=== PATIENT | male | born 2000 | race Caucasian/White ===

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

== ENCOUNTER → 2022-03-11 | Outpatient (CLI) | payer OTHER, SELFPAY ==
[2022-03-11 13:01] LABS: AST(SGOT) 167 U/L (15-37); Alanine Aminotransfer ALT/SGPT 518 U/L (16-61); Alkaline Phosphatase 194 U/L (45-117); Bilirubin, Direct 0.45 mg/dL (0.00-0.30); Globulin 3.2 g/dL (2.2-4.2); Protein, Total 7.2 g/dL (6.4-8.2)
[2022-03-11 13:19] LABS: Internal QC Validated? YES +Cl - CLEAR BKGD; Monotest Negative (Negative)
== END | disposition home or self-care (01) ==
LOC: LAB 11:48
PROVIDERS: PCP Pediatrics; Visit Provider Pediatrics
DX: J02.9 Acute pharyngitis, unspecified (principal)
CPT/HCPCS: 36415; 80076; 86308

== ENCOUNTER → 2022-03-31 | Outpatient (CLI) | payer OTHER, SELFPAY ==
[2022-03-31 17:37] LABS: AST(SGOT) 35 U/L (15-37); Alanine Aminotransfer ALT/SGPT 73 U/L (16-61); Albumin, Serum 4.3 g/dL (3.2-5.0); Alkaline Phosphatase 94 U/L (45-117); Bilirubin, Direct 0.18 mg/dL (0.00-0.30); Globulin 2.9 g/dL (2.2-4.2); Protein, Total 7.2 g/dL (6.4-8.2)
== END | disposition home or self-care (01) ==
LOC: LAB 16:31
PROVIDERS: PCP Pediatrics; Referring Provider Pediatrics; Visit Provider Pediatrics
DX: R74.01 Elevation of levels of liver transaminase levels (principal)
CPT/HCPCS: 36415; 80076

== ENCOUNTER → 2024-06-21 | Outpatient (CLI) | payer OTHER, SELFPAY ==
[2024-06-21 10:26] LABS: Erythrocyte Sedimentation Rate < 1 mm/hr (0-20)
[2024-06-21 10:29] LABS: Absolute Lymphocyte Count 1.49 X10^3/uL (0.83-4.51); Absolute Neutrophil Count 3.5 X10^3/uL (2.0-7.7); Basophil# 0.03 X10^3/uL; Basophil% 0.5 % (0-1); Eosinophil# 0.08 X10^3/uL; Eosinophils% 1.5 % (0-5); Hematocrit 50.9 % (40-54); Hemoglobin 17.1 g/dL (13.0-16.5); Lymphocyte # 1.49 X10^3/ul (0.83-4.51); Lymphocyte % 27.1 % (19-41); Mean Corp Hgb Conc 33.6 g/dL (32-36); Mean Corpuscular Hgb 30.5 pg (27.0-32.0); Mean Corpuscular Volume 90.9 fL (80-94); Mean Platelet Vol. 9.6 fl (6.2-12.0); Monocyte% 7.3 % (0-10); NRBC Flagged by Analyzer 0 % (0-5); Neutrophil # 3.47 X10^3/uL (2.7-7.7); Neutrophil % 63.2 % (47-70); Platelet Count 251 K/mm3 (150-450); RBC Distribution Width CV 11.8 % (11.6-14.6); RBC Distribution Width SD 39.4 fl (35.1-43.9); White Blood Count 5.5 K/mm3 (4.4-11.0)
[2024-06-21 10:54] LABS: Vitamin D,25 Hydroxy 39.4 ng/mL
[2024-06-21 11:22] LABS: ALB/GLOB Ratio 1.5 RATIO (0.9-2.4); AST(SGOT) 23 U/L (15-37); Alanine Aminotransfer ALT/SGPT 24 U/L (16-61); Albumin, Serum 4.3 g/dL (3.2-5.0); Alkaline Phosphatase 95 U/L (45-117); Anion Gap 5 (5-15); BUN 16 mg/dL (7-18); BUN/Creat Ratio 12.2 RATIO (10-20); Calcium,Total 9.5 mg/dL (8.5-10.1); Chloride 103 mmol/L (98-107); Cholesterol 179 mg/dL (200); Creatinine, Serum 1.31 mg/dL (0.70-1.30); EST Glomerular Filtration Rate 72 mL/min (>60); Est Glom Filt Rate - Afr Amer 87 mL/min (>60); Globulin 2.9 g/dL (2.2-4.2); Glucose 78 mg/dL (74-106); High Density Lipoprotein 68 mg/dL; Magnesium 2.6 mg/dL (1.6-2.6); Potassium 4.1 mmol/L (3.5-5.1); Protein, Total 7.2 g/dL (6.4-8.2); Sodium Level 138 mmol/L (136-145); Thyroid Stim Hormone (TSH) 0.894 uIU/mL (0.358-3.740); Triglycerides 99 mg/dL; Very Low Density Lipoprotein 20 mg/dL (5-40)
== END | disposition home or self-care (01) ==
LOC: LAB 09:31
PROVIDERS: PCP Internal Medicine; Referring Provider Internal Medicine; Visit Provider Internal Medicine
DX: Z00.00 Encounter for general adult medical examination without abnormal findings (principal); R42 Dizziness and giddiness; R11.0 Nausea; E55.9 Vitamin D deficiency, unspecified; L98.9 Disorder of the skin and subcutaneous tissue, unspecified
CPT/HCPCS: 36415; 80053; 80061; 82306; 83735; 84443; 85025; 85652

== ENCOUNTER 2024-06-22 12:17 | Emergency (ER) | payer OTHER, SELFPAY ==
[2024-06-22 12:18] VITALS: BP 178/89; PULSE 72; RESP 16; TEMP 36.6; O2SAT 100; BMI 25.2
[2024-06-22 12:30] VITALS: BP 159/77; PULSE 72; RESP 14; O2SAT 100
--- NOTE | 2024-06-22 13:07 | EDS_ITS ---
HPI History of Present Illness Chief Complaint: Hypertension Informant: patient Onset/Context/Timing Onset: Days Context: Gradual Onset Timing: Intermittent Current Severity: Mild Maximum Severity: Mild Narrative Narrative: 23-year-old male there is no past medical history. Recently had elevated blood pressure readings at doctor's office. Had labs done were basically unremarkable. He has had some lightheaded and dizziness recently. He is currently on no medications. He was sent in today because his blood pressure was elevated. He denies any severe headaches or chest pain. No shortness of breath. Prior similar symptoms: No Recent Illness/Hospitalization: No PFSH PFS Medical History Encounter for wellness examination in adult Nausea Lightheadedness Allergic conjunctivitis Allergic rhinitis Home Medications ?Medication ?Instructions ?Recorded ?Last Taken ?Type epinephrine 0.3 mg/0.3 mL 0.3 mg IM Q5-15M PRN 01/05/23 Unknown History injection, auto-injector Allergy/AdvReac Type Severity Reaction Status Date / Time peanut Allergy Anaphylaxis Verified 06/22/24 12:18 Family History Grandmother Arthritis Hypertension Pulmonary embolism 75 Grandfather Cancer MATERNAL-PANCRATIC , 76 PATERNAL-BLADDER, 75 Mother Thyroid disorder THYROID CANCER Surgical History History of appendectomy Social History adopted: No household members: other details: parents housing: house number of children: 0 current occupational status: unemployed current occupational exposures/hazards: No pets and animals: No leisure activities: sports and exercise history of recent travel: No sexually active: No Smoking Status: Never smoker alcohol intake: never substance use type: does not use well-balanced diet: daily or most days caffeine: No eating out: 1-3 times/week during the past year weight has: remained stable what type of physical activity do you participate in: running and weight training troy/catholic: Restorationist seatbelt use: always do you feel safe at home: Yes ROS ROS ED ROS Narrative Denies recent illness. Constitutional Constitutional ED: Denies chills or fever(s) Eyes Eyes: Denies blurry vision ENT ENT ED: Denies ear pain Cardiovascular Cardiovascular: Denies chest pain Respiratory/Chest Respiratory/Chest: Denies cough or dyspnea Gastrointestinal Gastrointestinal: Denies abdominal pain, constipation, diarrhea, melena, nausea or vomiting Genitourinary Genitourinary ED: Denies dysuria or hematuria Musculoskeletal Musculoskeletal: Denies arthralgias Integumentary Denies abscess Psychiatric Psychiatric: Denies depression Endocrine Endocrinology: Denies cold intolerance Hematologic/Lymphatic Hematologic/Lymphatic: Reports none Allergic/Immunologic Allergic/Immunologic ED: Denies mouth swelling, tongue swelling or urticaria EXAM Physical Exam Narrative Exam Narrative: 20-year-old male no acute distress vital signs stable initial blood pressure 178/80 9 repeat 159/77. H EENT exam normal. Pupils are reactive light. Extra motions are intact. No droop. No trauma. Neck nontender. Lungs clear. Heart regular rhythm no murmur. Abdomen soft nontender. Moving all 4 extremities. 5 out of 5 button reclaimer strength. Dorsi plantarflexion intact. Nontender. No edema. Back unremarkable. Neurologic exam normal. NIH 0. Bilateral button reclaimer. Bilateral dorsi plantarflexion. Bilateral [id number]. Bilateral fingertip to nose all within normal limits. He got up out of bed ambulating without any difficulty. Negative Romberg. Const Vital Signs: 06/22/24 12:18 06/22/24 12:29 06/22/24 12:30 Temperature 97.9 F Temperature Source Temporal Pulse Rate 72 72 Respiratory Rate 16 14 Respiratory Effort Normal Non-Labored Respiratory Pattern Normal Blood Pressure 178/89 H 159/77 H Blood Pressure Mean 118 104 Pulse Ox 100 100 Oxygen Delivery Method Room Air Room Air Positive well nourished and well developed; Negative for obese, cachectic, contractures or unkempt General Appearance ED: well developed and NAD; Negative for unkempt, cachectic, contractures, cyanotic, diaphoretic or pallor Nutritional Appearance: Negative for cachectic or obese HEENT Reports moist mucous membranes; Denies dry mucous membranes Negative for trauma or tenderness Mouth ED: No dry mucous membranes Mouth: No dry mucous membranes Eyes PERRL and EOMs intact bilaterally General Eye ED: Negative for pale conjunctiva or scleral icterus Neck no lymphadenopathy, supple and no JVD General: Negative for tenderness Lymph Lymphatic: Negative for other Chest Wall inspection of chest normal and palpation of chest normal Chest: Negative for other Resp normal respiratory effort and clear to auscultation bilaterally Effort and Inspection: Negative for retractions Auscultation: Negative for rales, rhonchi, wheezes or diminished lung sounds Cardio regular rate, regular rhythm, S1 normal heart sound, S2 normal heart sound and no murmurs Palpation: Negative for palpable S3 or palpable S4 Rate: Negative for bradycardia or tachycardic Rhythm: Negative for abnormal rhythm GI normal to inspection, nondistended, normoactive bowel sounds, non-tender, non- distended and no masses Inspection: Negative for abdominal distention Palpation: soft; Negative for tender, guarding or rebound tenderness present Back/Spine no CVA tenderness General Back: Negative for CVA tenderness Cervical Spine: Negative for cervical spine tenderness Thoracic Spine / Upper Back: Negative for thoracic spinal tenderness or paraspinal muscle tenderness Lumbar Spine / Lower Back: Negative for lumbar spinal tenderness Extremity normal to inspection General Extremety ED: Negative for edema or tenderness General Extremity: Negative for edema Neuro oriented x3, CN's II-XII intact bilaterally and no sensory deficits noted Sensorium / Orientation: alert; Negative for orientation impaired, lethargic or stuporous Sensory Exam: No sensory level loss detected Motor Exam: strength 5/5 throughout; Negative for general weakness or strength abnormal Psych mental status grossly normal Appearance: Negative for unkempt Attitude: No agitated Mood & Affect: Negative for depressed or tearful Skin no rashes or lesions noted, no wounds and skin turgor normal General Skin Exam: elasticity normal; Negative for jaundice or pallor Lesions: No lesion noted Rashes: No rashes noted Trauma: Negative for abrasion Wounds: Negative for wounds noted MDM MDM MDM Narrative Medical decision making narrative: Healthy 23-year-old male with elevated blood pressure. Had a completely normal exam. He had labs done yesterday. They were basically unremarkable. I discussed with both he and both parents are present in the room. His dad works here at the pharmacy. I told him I thought it would be aggressive at this time to start him on blood pressure medications with a completely normal exam and him being 23 and healthy. We can log his blood pressure over the next week and see where those are and then he and his physician can make the more informed decision. They are comfortable with that plan. He will be discharged home to follow-up with Dr. Soledad Foote. Discharge Plan Triage Chief Complaint: Hypertension ED Provider: Ben Lopez Dx/Rx/DC Orders Clinical Impression: Elevated blood pressure reading Instructions: ED Hypertension, To Be Confirmed Prescriptions: No Action epinephrine 0.3 mg/0.3 mL auto-injector 0.3 mg IM Q5-15M PRN Rx Instructions: do not exceed 3 doses per episode Primary Care Provider: Soledad Foote Referrals: Soledad Foote MD [Primary Care Provider] - 1 Week Activity Restrictions/Additional Instructions: Do normal daily activities. I would continue to exercise. Things to help with your blood pressure would be obviously exercise, walking, reading, meditation. Log your blood pressures twice daily. Take these blood pressure readings to Dr. Foote next week and he and you can make an informed decision if you need to start blood pressure medications. Your creatinine was only 1.31. The upper limits of normal in the lab is 1.3 that is basically normal. Print Language: Guyanese Disposition Disposition: Home, Self Care
== END 2024-06-22 13:14 | disposition home or self-care (01) ==
LOC: ED 13:09
PROVIDERS: Emergency Provider Emergency Medicine; PCP Internal Medicine; Visit Provider Emergency Medicine
DX: I10 Essential (primary) hypertension (principal)
CPT/HCPCS: 99282

== ENCOUNTER → 2024-07-05 | Outpatient (CLI) | payer OTHER, SELFPAY ==
[2024-07-05 11:40] LABS: Anion Gap 4 (5-15); BUN 19 mg/dL (7-18); BUN/Creat Ratio 12.6 RATIO (10-20); Calcium,Total 9.6 mg/dL (8.5-10.1); Chloride 107 mmol/L (98-107); Creatinine, Serum 1.51 mg/dL (0.70-1.30); EST Glomerular Filtration Rate 61 mL/min (>60); Est Glom Filt Rate - Afr Amer 74 mL/min (>60); Glucose 62 mg/dL (74-106); Potassium 4.3 mmol/L (3.5-5.1); Sodium Level 141 mmol/L (136-145)
[2024-07-18 11:10] LABS: ALDOSTERONE/RENIN RATIO 2.3 (0.0-30.0); Aldosterone, Serum 3.9 ng/dL (0.0-30.0); Dopamine, Pl 54 pg/mL (0-48); Epinephrine, Pl 47 pg/mL (0-62); Norepinephrine, Pl 535 pg/mL (0-874)
== END | disposition home or self-care (01) ==
LOC: LAB 10:29
PROVIDERS: PCP Internal Medicine; Referring Provider Internal Medicine; Visit Provider Internal Medicine
DX: R03.0 Elevated blood-pressure reading, without diagnosis of hypertension (principal)
CPT/HCPCS: 36415; 80048; 82088; 82384; 82533; 84244

== ENCOUNTER → 2024-09-20 | Outpatient (CLI) | payer OTHER, SELFPAY ==
--- NOTE | 2024-09-20 17:17 | US_ITS ---
INDICATION: ELEVATED SERUM CREATININE EXAMINATION: Ultrasound US Kidney(s) complete (eg, kidneys and bladder) TECHNIQUE: Brewster scale and color doppler images were obtained of the kidneys. COMPARISON: No relevant prior comparison study available FINDINGS: RIGHT KIDNEY: 11 x 6 x 6.6 cm. The renal cortex measures 2.2 cm. There is no hydronephrosis. No shadowing calculus, focal lesion or perinephric collection is demonstrated. Ureteral jet to the bladder was visualized. LEFT KIDNEY: 11 x 4.3 x 6.4 cm. The left kidney is poorly visualized due to overlying bowel gas. The renal cortex measures 2 cm. There is no hydronephrosis. No shadowing calculus, focal lesion or perinephric collection is definitely demonstrated. Ureteral jet to the bladder wasn''t visualized. URINARY BLADDER: The calculated prevoid bladder volume is 527 cc. US/Kidney and Bladder IMPRESSION: Essentially unremarkable renal ultrasound. Electronically Signed: Carl Taylor MD at 9:15 EST ,
== END | disposition home or self-care (01) ==
LOC: US 17:09
PROVIDERS: PCP Internal Medicine; Referring Provider Internal Medicine Nephrology; Visit Provider Internal Medicine Nephrology
DX: R79.89 Other specified abnormal findings of blood chemistry (principal)
CPT/HCPCS: 76770

== ENCOUNTER → 2024-09-26 | Outpatient (CLI) | payer OTHER, SELFPAY ==
[2024-09-26 11:13] LABS: Anion Gap 6 (5-15); BUN 16 mg/dL (7-18); BUN/Creat Ratio 11.8 RATIO (10-20); Calcium,Total 9.2 mg/dL (8.5-10.1); Chloride 108 mmol/L (98-107); Creatinine, Serum 1.36 mg/dL (0.70-1.30); EST Glomerular Filtration Rate 69 mL/min (>60); Est Glom Filt Rate - Afr Amer 83 mL/min (>60); Glucose 66 mg/dL (74-106); Potassium 3.8 mmol/L (3.5-5.1); Sodium Level 142 mmol/L (136-145)
[2024-09-28 12:08] LABS: Anti-dsDNA Ab <1 IU/mL (0-9)
[2024-10-01 08:07] LABS: Anti-Glomerular Basement Memb < 0.2 units (0.0-0.9); Complement C3 106 mg/dL (82-167); Cytoplasmic Ab (C-ANCA) <1:20 titer (Neg:<1:20); Perinuclear Ab (P-ANCA) <1:20 titer (Neg:<1:20)
== END | disposition home or self-care (01) ==
PROVIDERS: PCP Internal Medicine; Referring Provider Internal Medicine Nephrology; Visit Provider Internal Medicine Nephrology
DX: R79.89 Other specified abnormal findings of blood chemistry (principal)
CPT/HCPCS: 36415; 80048; 83520; 86037; 86160; 86225

== ENCOUNTER → 2025-08-21 | Outpatient (CLI) | payer OTHER, SELFPAY ==
--- OUTSIDE RECORDS SUMMARY | 2025-08-21 07:10 | XMS RPT_ITS | CCD ---
Author Organization [facility] Care Team Providers Care Election Watcher Name Role Phone Marii Gross LPN Unavailable Unavailab Marii Alberto LPN Unavailable Unavailab Roxanne Berumen MD Primary Care Provider Dr. Roxanne Kellogg Primary Care Provider [phone] Dr. Roxanne Kellogg Referring Provider [phone] BOGDAN Sheridan Attending Provider Roxanne Kellogg MD Primary Care Provider DELIA FARRIS Attending Unavailable ROXANNE KELLOGG Primary Care Unavailable ROXANNE KELLOGG Attending Unavailable ROXANNE KELLOGG Primary Care Unavailable ROXANNE KELLOGG Attending Unavailable BESS, ROXANNE Gomez Primary Care Unavailable ROXANNE KELLOGG Primary Care Unavailable DELIA FARRIS Attending Unavailable Dr. Soledad Foote MD Primary Care Provider Dr. Soledad Foote MD Attending Provider Soledad Foote Primary Care Unavailable Ben Lopez Attending Unavailable Marie, Jayaprakas Attending Unavailable Marie, Jayaprakas Referring Unavailable Soledad Foote Primary Care Unavailable Soledad Foote Attending Unavailable Soledad Foote Primary Care Unavailable Roxanne Kellogg Primary Care Unavailable Soledad Foote Attending Unavailable Soledad Foote Primary Care Unavailable Soledad Foote Attending Unavailable Soledad Foote Primary Care Unavailable Soledad Foote Attending Unavailable Soledad Foote Referring Unavailable Soledad Foote Primary Care Unavailable Soledad Foote Attending Unavailable Soledad Foote Referring Unavailable Soledad Foote Primary Care Unavailable Marie, Jayaprakas Attending Unavailable Marie, Jayaprakas Referring Unavailable Allergies Allergy Classification Reported Allergen(s) Allergy Type Date of Onset Reaction(s) Facility (9 sources) peanut; Translations: [PEANUTS] drug allergy 08-07-2005 [facility] Work Phone: (1 source) peanut allergenic extract Drug Allergy 06-19-2025 Anaphylaxis [facility] (1 source) peanut allergenic extract Drug Allergy 06-19-2025 [facility] Repository Medications Current Medications Medication Drug Class(es) Dates Sig (Normalized) Sig (Original) amoxicillin 875 mg / clavulanate 125 mg oral tablet (4 sources) Penicillin-class Antibacterial Start: 05-20-2022 End: 05-27-2022 take 1 tablet by mouth twice daily amoxicillin-clavu lanic acid (AUGMENTIN) 875-125 mg per tablet Indications: Acute suppurative otitis media of left ear without spontaneous rupture of tympanic membrane, recurrence not specified Take 1 tablet by mouth twice daily for 7 days. 14 tablet 0 05/20/2022 05/27/2022 Active Start: 03-09-2022 End: 03-19-2022 take 1 tablet by mouth every twelve hours Amoxicillin-Pot Clavulanate Discontinued 1 TABLET PO Q12H 20 March 09, 2022 7:41am March 19, 2022 12:05am Start: 03-09-2022 End: 03-19-2022 Amoxicillin-Pot Clavulanate 875-125 mg tablet Discontinued 1 {tbl} PO Q12H 20 10 March 09, 2022 12:00am March 18, 2022 12:00am March 19, 2022 12:05am Acute sinusitis, unspecified Comment on above: Take 1 tablet by cecy twice daily for 7 days. azithromycin 250 mg oral tablet (1 source) Macrolide Antimicrobial Start: 06-19-20 Azithromycin (Zithromax) 250 mg tablet Active 0 PO .COMPLEX 6 June 19, 2025 12:00am For 250 mg dose pack: take 500 mg today (day 1), then 250 mg for 4 days (days 2-5) PO ciprofloxacin 3 mg/ml ophthalmic solution (1 source) Quinolone Antimicrobial Start: 05-13-20 End: 05-18-20 take 1 drop(s) into the eye(s) four times daily ciprofloxacin HCl (CILOXAN) 0.3 % ophthalmic solution Use 1 Drop in both eyes four times daily for 5 days. 10 mL 0 05/13/2022 05/18/2022 Active Comment on above: Use 1 Drop in both e yes four times daily for 5 days. [id number] 0.3 ml EPINEPHrine 1 mg/ml auto-injector (15 sources) alpha-Adrenergic Agonist, beta-Adrenergic Agonist, Catecholamine Start: 01-06-20 End: 01-22-20 25 Epinephrine 0.3 mg/0.3 mL auto-injector Active 0.3 mg IM every 5 to 15 minutes as needed for anaphylaxis 2 January 21, 2025 8:05am do not exceed 3 doses per episode Start: 06-02-2019 End: 10-07-2022 EPINEPHrine (EPIPEN) 0.3 mg/ 0.3 mL auto-injector Indications: Allergy to peanuts Inject to the anterior thigh as directed by the allergy action plan. If used must seek emergent medical care. May repeat a second dose in 5 minutes awaiting emergency care. Dispense 2 twin packs with trainers. 2 Each 1 03/03/2021 10/07/2022 Discontinued Comment on above: Inject to the anteri or thigh as directed by the allergy action plan. If used must seek emergent medical care. May repeat a second dose in 5 minutes awaiting emergency care. Dispense 2 twin packs with trainers. Completed/Discontinued Medications Medication Drug Class(es) Dates Sig (Normalized) Sig (Original) amoxicillin 500 mg oral capsule (2 sources) Penicillin-class Antibacterial Start: 2 End: 2 take 2 capsules by mouth twice daily amoxicillin (POLYMOX, AMOXIL) 500 mg capsule Take 2 capsules by mouth twice daily for 7 days. 28 capsule 0 05/13/2022 05/20/2022 Discontinued (Course of therapy completed) Comment on above: Take 2 capsules by m outh twice daily for 7 days. methylPREDNISolone 4 mg oral tablet (1 source) Corticosteroid Start: 2 End: 3 take 1 tablet by mouth once Methylprednisolone (Medrol (Myles)) 4 mg tablets,dose pack Discontinued 0 PO per package directions 21 May 12, 2022 12:00am December 17, 2022 3:12pm PO PER PKG DIR prednisoLONE 3 mg/ml oral solution (3 sources) Corticosteroid Start: 2 End: 2 take 15 mL by mouth once daily prednisoLONE sodium phosphate (ORAPRED) 15 mg/5 mL (3 mg/mL) oral liquid Indications: Exudative pharyngitis Take 15 mL by mouth once daily for 5 days. 75 mL 0 03/11/2022 03/16/2022 Comment on above: Take 15 mL by mouth once daily for 5 days. Problems Active Problems Problem Classification Problem Date Documented Da te Episodic/Chronic Allergic reactions (8 sources) Allergy to peanut; Translations: [Allergy to peanuts] Onset: 09-16-2014 09-16-2014 Episodic Essential hypertension (1 source) Essential (primary) hypertension; Translations: [Essential (primary) hypertension] Onset: 07-17-2024 Chronic Inflammation; infection of eye (except that caused by tuberculosis or sexually transmitteddisease) (2 sources) Acute infectious conjunctivitis; Translations: [Unspecified acute conjunctivitis, bilateral] Episodic Other circulatory disease (2 sources) Elevated blood pressure; Translations: [Elevated blood-pressure reading, without diagnosis of hypertension] 06-30-2024 Episodic Other circulatory disease (1 source) Elevated blood-pressure reading, without diagnosis of hypertension; Translations: [Elevated blood-pressure reading, without diagnosis of hypertension] Onset: 06-19-2025 Episodic Other ear and sense organ disorders (1 source) Impacted cerumen of bilateral ears; Translations: [Impacted cerumen, bilateral] Episodic Other ear and sense organ disorders (3 sources) Impacted cerumen; Translations: [Impacted cerumen, right ear] 06-19-2025 Episodic Other ear and sense organ disorders (1 source) Impacted cerumen, left ear; Translations: [Impacted cerumen, left ear] Onset: 06-19-2025 Episodic Other ear and sense organ disorders (1 source) Impacted cerumen, right ear; Translations: [Impacted cerumen, right ear] Onset: 06-19-2025 Episodic Other screening for suspected conditions (not mental disorders or infectious disease) (2 sources) Serum creatinine raised; Translations: [Other specified abnormal findings of blood chemistry] Onset: 06-19-2025 07-05-2024 Episodic Other skin disorders (1 source) Skin lesion; Translations: [Disorder of the skin and subcutaneous tissue, unspecified] 07-22-2023 Episodic Other skin disorders (1 source) Disorder of skin of upper limb; Translations: [Disorder of the skin and subcutaneous tissue, unspecified] 07-22-2023 Episodic Other upper respiratory disease (1 source) Allergic rhinitis; Translations: [Allergic rhinitis, unspecified] 05-12-2022 Chronic Other upper respiratory infections (3 sources) Sinusitis; Translations: [Chronic sinusitis, unspecified] Onset: 06-19-2025 06-19-2025 Chronic Other upper respiratory infections (10 sources) Exudative pharyngitis; Translations: [Acute pharyngitis, unspecified] Onset: 03-11-2022 Episodic Otitis media and related conditions (1 source) Acute suppurative otitis media without spontaneous rupture of ear drum; Translations: [Acute suppurative otitis media without spontaneous rupture of ear drum, left ear] Episodic Past or Other Problems Problem Classification Problem Date Documented Da te Episodic/Chronic Conditions associated with dizziness or vertigo (2 sources) Lightheadedness; Translations: [Dizziness and giddiness] Onset: 06-22-2024 06-21-2024 Episodic Nausea and vomiting (2 sources) Nausea; Translations: [Nausea] Onset: 06-22-2024 06-21-2024 Episodic Other diseases of veins and lymphatics (6 sources) Varicocele; Translations: [Scrotal varices] Onset: 09-02-2016 09-02-2016 Episodic Other male genital disorders (6 sources) Spermatocele; Translations: [Spermatocele of epididymis, unspecified] Onset: 09-21-2015 09-21-2015 Episodic Other non-traumatic joint disorders (2 sources) Ankle pain; Translations: [Pain in right ankle and joints of right foot] Onset: 07-17-2017 07-17-2017 Episodic Other skin disorders (1 source) Disorder of the skin and subcutaneous tissue, unspecified; Translations: [Disorder of the skin and subcutaneous tissue, unspecified] Onset: 06-22-2024 Episodic Sprains and strains (2 sources) Strain of unspecified muscle and tendon at ankle and foot level, right foot, initial encounter; Translations: [Strain of unspecified muscle and tendon at ankle and foot level, right foot, initial encounter] Onset: 07-17-2017 07-17-2017 Episodic Results Test Name Value Interpretation Reference Range Facility MR/BMSJhoanaIMBon 06-19-2025 MR/BMS.IMB [facility] [address] [place] [address] OFFICE VISIT Date of Service: 06/19/25 MR#: [id number] Acct: [id number] Name: FAIZAN PASTOR Rep #: [id number] : 2000 Provider: Dr. Soledad kwan MD Age/Sex: 24/M Location: [facility] Status: Signed with Addenda ADDENDUM by Gilles Arnold RN on 06/19/25 at 1135 Office Procedure Documentation entered by Gilles Arnold RN 06/19/25 11:35: Cerumen Removal Procedure BMS Cerumen Removal Procedure Procedure performed by: Gilles Arnold Method of removal: irrigation From which ear canal was the cerumen removed: bilateral Amount of Cerumen: moderate Patient tolerated procedure: well Complications: none Date cc: * Signed Intake Vital Signs 07/05/24 09:24 06/19/25 09:31 Height 5 ft 11 in 5 ft 11 in Weight: 182 lb 2 oz 180 lb 8 oz BMI 25.4 25.2 BP 162/77 H 181/72 H Blood Pressure Location Lt brachial Rt brachial Position Sitting Sitting Respiration 16 16 Pulse 62 70 Pulse Source Monitor Monitor Temp 98.6 F 98.9 F Temp Source Temporal Temporal Pulse Oximetry (%) 98 98 Oxygen Delivery Method room air room air Intake Visit Reasons: Cough, Congestion Chief Complaint: Cough, congestion Perinatology Physician Required: No Accompanied by: Self Is patient in pain?: Yes (Sinus pressure) Pain scale (1-10): 1 Allergies peanut Allergy (Verified 06/19/25 09:26) Anaphylaxis Medications ???Medication ???Instructions ???Recorded ???Confirmed ???Type epinephrine 0.3 mg/0.3 mL 0.3 mg (0.3 mL) IM Q5-15M PRN 03/2 4/25 08/20/25 Rx injection, auto-injector anaphylaxis #2 ea azithromycin 250 mg tablet See Rx Instructions PO .COMPLEX #6 06/19/25 06/19/25 Rx (Zithromax) tabs [facility] Medical History (Updated 06/19/25 @ 10:[address] Soledad Foote MD) Sinus infection Impacted cerumen, right ear Impacted cerumen of left ear Elevated serum creatinine Encounter for wellness examination in adult Nausea Lightheadedness Allergic conjunctivitis Allergic rhinitis Surgical History History of appendectomy Family History Grandmother Arthritis Hypertension Pulmonary embolism 75 Grandfather Cancer MATERNAL-PANCRATIC , 76 PATERNAL-BLADDER, 75 Mother Thyroid disorder THYROID CANCER Social History adopted: No household members: other details: parents housing: house number of children: 0 current occupational status: unemployed current occupational exposures/hazards: No pets and animals: No leisure activities: sports and exercise history of recent travel: No sexually active: No Smoking Status: Never smoker alcohol intake: never substance use type: does not use well-balanced diet: daily or most days caffeine: No eating out: 1-3 times/week during the past year weight has: remained stable what type of physical activity do you participate in: running and weight training troy/orthodox: Uatsdin seatbelt use: always do you feel safe at home: Yes HPI HPI Chief Complaint: Cough, congestion Details: FAIZAN PASTOR, is a 24 M who presents to the office today for Annnual wellness visit, but also has 1 week of upper respiratory symptoms to include head congestions, yellow green sinus drainage, "clogged ears." No coughing. Has unfortunately been using pseudophed. He too some this morning. He has a history of elevated BP, which we evaluated extensively last year. Had mildly elevated creatinine, and because of that, and elevated BP, was referred to nephrology. We did lab workup including hormones, aldosterone, renin levels, as well as metanephrines. All of this was generally speaking unremarkable. Nephrology did not have any specific concerns per se. His blood pressures did come back down and he monitored for a while but over the last approximately a year, he has not been regularly monitoring. Has a blood pressure cuff at home. 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 He is working out at the gym a couple of days a week. He is not experiencing any episode chest pain, chest tightness, shortness of breath wheeze cough or congestion. No fever or chills. No nausea or vomiting. Appetite has been good. Bowel movements have been regular. Continues to carry EpiPen due to history of peanut allergy. Review of systems per chart. Physical exam. Vital signs on chart. PERRLA. Sclera are clear. Right TM occluded by cerumen. Left mild ceruminosis. Perhaps a little fluid behind the left eardrum but the eardrum is not erythematous. Canal is unremarkable. Posterior pharynx is unremarkable. (more content not included)... Normal [facility] ANCAon 10-01-2024 Atypical pANCA <1:20 Normal Neg:<1:20 [facility] Comment on above: Result Comment: The atypical pANCA pattern has been observed in a significant percentage of patients with ulcerative colitis, primary sclerosing cholangitis and autoimmune hepatitis. Performed By: #### L 3300.1200, L3400.4200, L500.2500, L801.1543, L801.1541, L3100.5800, L801.1545, L3100.5700, L3100.5500 #### [facility] [address] [place], [place], [id number] Cytoplasmic Ab <1:20 Normal Neg:<1:20 [facility] Comment on above: Performed By: #### L 3300.1200, L3400.4200, L500.2500, L801.1543, L801.1541, L3100.5800, L801.1545, L3100.5700, L3100.5500 #### [facility] [address] [place], [place], [id number] Perinuclear Ab. <1:20 Normal Neg:<1:20 [facility] Comment on above: Result Comment: The presence of positive fluorescence exhibiting P-ANCA or C-ANCA patterns alone is not specific for the diagnosis of Carlos's Granulomatosis (WG) or microscopic polyangiitis. Decisions about treatment should not be based solely on ANCA IFA results. The International ANCA Group Consensus recommends follow up testing of positive sera with both CT- 3 and MPO-ANCA enzyme immunoassays. As many as 5% serum samples are positive only by EIA. Ref. AM J Clin Pathol 1999;111:507-513. Performed By: #### L 3300.1200, L3400.4200, L500.2500, L801.1543, L801.1541, L3100.5800, L801.1545, L3100.5700, L3100.5500 #### [facility] [address] [place], [address] Anti-Glomerular Basement Mem bon 10-01-2024 ANTI-GLOM BM Ab < 0.2 Normal 0.0-0.9 [facility] Comment on above: Result Comment: Perf ormed at: - [facility] [address] [id number] Harness Mender: Slava Giang PhD, Phone: [phone] Performed at: - [facility] [id number] Harness Mender: Gini Tong MD, Phone: [phone] Performed By: #### L 3300.1200, L3400.4200, L500.2500, L801.1543, L801.1541, L3100.5800, L801.1545, L3100.5700, L3100.5500 #### [facility] [address] [place], [address] Complement C3on 10-01-2024 COMP C3 106 mg/dL Normal 82-167 [facility] Comment on above: Performed By: #### L 3300.1200, L3400.4200, L500.2500, L801.1543, L801.1541, L3100.5800, L801.1545, L3100.5700, L3100.5500 #### [facility] [address] [place], [address] Complement C4on 10-01-2024 COMPLEMENT, C4 24 mg/dL Normal 12-38 [facility] Comment on above: Performed By: #### L 3300.1200, L3400.4200, L500.2500, L801.1543, L801.1541, L3100.5800, L801.1545, L3100.5700, L3100.5500 #### [facility] [address] [place], [address] Miscellaneous Lab Procedureo n 10-01-2024 [facility] [place] Normal [facility] Comment on above: Order Comment: [id number] PR3 SERUM [id number] PR3 SERUM RMT Result Comment: TEST RESULTS LIMITS Anti-PR3 Antibodies <0.2 units 0.0-0.9 TESTING PERFORMED AT [facility]. ORIGINAL REPORT ON FILE IN LAB CONTAINS ADDITIONAL TEST SITE INFORMATION. Performed By: #### L 3300.1200, L3400.4200, L500.2500, L801.1543, L801.1541, L3100.5800, L801.1545, L3100.5700, L3100.5500 ####[facility] [id number] [place], [address] Miscellaneous Lab Procedure 2on 10-01-2024 [facility] [place] 2 Normal [facility] Comment on above: Order Comment: [id number] 006 MPO PLASMA [id number] MPO PLASMA RF Result Comment: TEST RESULTS LIMITS Myeloperoxidase (MPO), 266 pmol/L 0-469 Low CVD Risk <470 Moderate Risk 470 - 539 High Risk >539 [facility]. ORIGINAL REPORT ON FILE IN LAB CONTAINS ADDITIONAL TEST SITE INFORMATION. Performed By: #### L 3300.1200, L3400.4200, L500.2500, L801.1543, L801.1541, L3100.5800, L801.1545, L3100.5700, L3100.5500 ####[facility] [address] [place], [address] Miscellaneous Lab Procedure 3on 10-01-2024 [facility] [place] 3 Normal [facility] Comment on above: Order Comment: [id number] CYSTATIN C SERUM [id number] CYSTATIN C SERUM RMT Result Comment: TEST RESULTS LIMITS Cystatin C 0.94 mg/L 0.60-1.00 TESTING PERFORMED AT [facility]. ORIGINAL REPORT ON FILE IN LAB CONTAINS ADDITIONAL TEST SITE INFORMATION. Performed By: #### L 3300.1200, L3400.4200, L500.2500, L801.1543, L801.1541, L3100.5800, L801.1545, L3100.5700, L3100.5500 ####[facility] [address] [place], [place], [id number] Anti-dsDNA Abon 09-28-2024 ANTI-DNA (DS)AB <1 Normal 0-9 [facility] Comment on above: Result Comment: Nega tive <5 Equivocal 5 - 9 Positive >9 Performed at: [address] [id number] Harness Mender: Slava Giang PhD, Phone: [phone] Performed By: #### L 3300.1200, L3400.4200, L500.2500, L801.1543, L801.1541, L3100.5800, L801.1545, L3100.5700, L3100.5500 #### [facility] [address] [place], [place], [id number] Basic Metabolic Profile (BMP )on 09-26-2024 BUN/CRE 11.8 RATIO Normal 10-20 [facility] Comment on above: Performed By: #### L 3300.1200, L3400.4200, L500.2500, L801.1543, L801.1541, L3100.5800, L801.1545, L3100.5700, L3100.5500 #### [facility] [address] [place], [place], [phone] CA,Total 9.2 mg/dL Normal 8.5-10.1 [facility] Comment on above: Performed By: #### L 3300.1200, L3400.4200, L500.2500, L801.1543, L801.1541, L3100.5800, L801.1545, L3100.5700, L3100.5500 #### [facility] [address] [place], [place], [phone] Chloride [Moles/Vol] 108 mmol/L High 98-107 [facility] Comment on above: Performed By: #### L 3300.1200, L3400.4200, L500.2500, L801.1543, L801.1541, L3100.5800, L801.1545, L3100.5700, L3100.5500 #### [facility] [address] [place], [place], [phone] (750) CO2 [Moles/Vol] 28.0 mmol/L Normal 21.0-32.0 [facility] Comment on above: Performed By: #### L 3300.1200, L3400.4200, L500.2500, L801.1543, L801.1541, L3100.5800, L801.1545, L3100.5700, L3100.5500 #### [facility] [address] [place], [place], [phone] (112) Creatinine [Mass/Vol] 1.36 mg/dL High 0.70-1.30 [facility] Comment on above: Result Comment: The validity of the calculated GFR GFRAA in patients over 70 years has not been determined. Clinical correlation is essential. Performed By: #### L 3300.1200, L3400.4200, L500.2500, L801.1543, L801.1541, L3100.5800, L801.1545, L3100.5700, L3100.5500 #### [facility] [address] [place], [place], [phone] (910) EST GFR - AA 83 mL/min Normal >60 [facility] Comment on above: Result Comment: Afri can Citizen [place] GFR Calc Performed By: #### L 3300.1200, L3400.4200, L500.2500, L801.1543, L801.1541, L3100.5800, L801.1545, L3100.5700, L3100.5500 #### [facility] [address] [place], [place], [phone] (699) GAP 6 Normal 5-15 [facility] Comment on above: Performed By: #### L 3300.1200, L3400.4200, L500.2500, L801.1543, L801.1541, L3100.5800, L801.1545, L3100.5700, L3100.5500 #### [facility] [address] [place], [address] GFR/1.73 sq M.predicted among non-blacks MDRD (S/P/Bld) [Vol rate/Area] 69 mL/min/{1.73_m2} Normal >60 [facility] Comment on above: Result Comment: Non- GFR Calc Performed By: #### L 3300.1200, L3400.4200, L500.2500, L801.1543, L801.1541, L3100.5800, L801.1545, L3100.5700, L3100.5500 #### [facility] [address] [place], [address] Glucose [Mass/Vol] 66 mg/dL Low 74-106 [facility] Comment on above: Performed By: #### L 3300.1200, L3400.4200, L500.2500, L801.1543, L801.1541, L3100.5800, L801.1545, L3100.5700, L3100.5500 #### [facility] [address] [place], [address] Potassium [Moles/Vol] 3.8 mmol/L Normal 3.5-5.1 [facility] Comment on above: Performed By: #### L 3300.1200, L3400.4200, L500.2500, L801.1543, L801.1541, L3100.5800, L801.1545, L3100.5700, L3100.5500 #### [facility] [address] [place], [address] Sodium [Moles/Vol] 142 mmol/L Normal 136-145 [facility] Comment on above: Performed By: #### L 3300.1200, L3400.4200, L500.2500, L801.1543, L801.1541, L3100.5800, L801.1545, L3100.5700, L3100.5500 #### [facility] [address] [place], [address] Urea nitrogen [Mass/Vol] 16 mg/dL Normal 7-18 [facility] Comment on above: Performed By: #### L 3300.1200, L3400.4200, L500.2500, L801.1543, L801.1541, L3100.5800, L801.1545, L3100.5700, L3100.5500 #### [facility] [address] [place], [address] Kidney and Bladderon 024 Kidney and Bladder [facility] Services [address] [place] [address] Kidney and Bladder MR#: [id number] Acct: [id number] Name: FAIZAN PASTOR Rep #: [id number] : 2000 M 23 From: Carl Quintero PCP: Dr. Soledad Foote MD Status: [facility] Study: Kidney and Bladder Date of Exam: 09/20/24 Exam# [id number] Ordering Dr: Pramod Salazar MD :[id number] INDICATION: ELEVATED SERUM CREATININE EXAMINATION: Ultrasound US Kidney(s) complete (eg, kidneys and bladder) TECHNIQUE: Brewster scale and color doppler images were obtained of the kidneys. COMPARISON: No relevant prior comparison study available FINDINGS: RIGHT KIDNEY: 11 x 6 x 6.6 cm. The renal cortex measures 2.2 cm. There is no hydronephrosis. No shadowing calculus, focal lesion or perinephric collection is demonstrated. Ureteral jet to the bladder was visualized. LEFT KIDNEY: 11 x 4.3 x 6.4 cm. The left kidney is poorly visualized due to overlying bowel gas. The renal cortex measures 2 cm. There is no hydronephrosis. No shadowing calculus, focal lesion or perinephric collection is definitely demonstrated. Ureteral jet to the bladder wasn''t visualized. URINARY BLADDER: The calculated prevoid bladder volume is 527 cc. US/Kidney and Bladder IMPRESSION: Essentially unremarkable renal ultrasound. Electronically Signed: Carl Taylor MD at 9:15 EST , CC: Dr. Pramod Salazar MD; Dr. Soledad Foote MD Scrap Hoist Operator: Signed Normal [facility] Catecholamines, Plasmaon DOPAMINE 54 pg/mL Abnormal 0-48 [facility] Comment on above: Order Comment: Test( s) 433859-Khlqjzaxgza; 613626-Tugxv Activity, Plasmawas developed and its performance characteristicsdetermined by [facility]. It has not been cleared or approvedby the Food and Drug Administration. Performed By: #### L 3300.1050, L500.2500, L509.6000, L3430.0100 ####[facility] [address] [place], [address] EPINEPHRINE 47 pg/mL Normal 0-62 [facility] Comment on above: Order Comment: Test( s) 184523-Xwoulmkoowf; 415987-Rgcra Activity, Plasmawas developed and its performance characteristicsdetermined by [facility]. It has not been cleared or approvedby the Food and Drug Administration. Performed By: #### L 3300.1050, L500.2500, L509.6000, L3430.0100 ####[facility] [address] [place], [address] NOREPINEPHRINE 535 pg/mL Normal 0-874 [facility] Comment on above: Order Comment: Test( s) 746194-Ksvstcugcxk; 704070-Eagui Activity, Plasmawas developed and its performance characteristicsdetermined by [facility]. It has not been cleared or approvedby the Food and Drug Administration. Performed By: #### L 3300.1050, L500.2500, L509.6000, L3430.0100 ####[facility] [address] [place], [address] Renin/Aldosterone Activityon 07-18-2024 ALD/RENIN RATIO 2.3 Normal 0.0-30.0 [facility] Comment on above: Order Comment: Test( s) 699230-Oiaziqdvvwv; 692678-Oiudj Activity, Plasmawas developed and its performance characteristicsdetermined by [facility]. It has not been cleared or approvedby the Food and Drug Administration. Result Comment: Unit s: ng/dL per ng/mL/hr Performed at: [address] [id number] Harness Mender: Gini Tong MD, Phone: [phone] Performed By: #### L 3300.1050, L500.2500, L509.6000, L3430.0100 ####[facility] [address] [place], [address] ALDOSTERONE,S 3.9 ng/dL Normal 0.0-30.0 [facility] Comment on above: Order Comment: Test( s) 374157-Codneigrxit; 249140-Dnput Activity, Plasmawas developed and its performance characteristicsdetermined by [facility]. It has not been cleared or approvedby the Food and Drug Administration. Performed By: #### L 3300.1050, L500.2500, L509.6000, L3430.0100 ####[facility] [address] [place], [address] RENIN, PLASMA 1.660 ng/mL/hr Normal 0.167-5.380 [facility] Comment on above: Order Comment: Test( s) 954549-Unetqerqzeb; 629440-Ytauj Activity, Plasmawas developed and its performance characteristicsdetermined by [facility]. It has not been cleared or approvedby the Food and Drug Administration. Performed By: #### L 3300.1050, L500.2500, L509.6000, L3430.0100 ####[facility] [address] [place], [address] Basic Metabolic Profile (BMP )on 07-05-2024 BUN/CRE 12.6 RATIO Normal 10-20 [facility] Comment on above: Performed By: #### L 3300.1050, L500.2500, L509.6000, L3430.0100 ####[facility] [address] [place], [address] CA,Total 9.6 mg/dL Normal 8.5-10.1 [facility] Comment on above: Performed By: #### L 3300.1050, L500.2500, L509.6000, L3430.0100 ####[facility] [address] [place], [address] Chloride [Moles/Vol] 107 mmol/L Normal 98-107 [facility] Comment on above: Performed By: #### L 3300.1050, L500.2500, L509.6000, L3430.0100 ####[facility] [address] [place], [address] CO2 [Moles/Vol] 30.0 mmol/L Normal 21.0-32.0 [facility] Comment on above: Performed By: #### L 3300.1050, L500.2500, L509.6000, L3430.0100 ####[facility] [address] [place], [address] Creatinine [Mass/Vol] 1.51 mg/dL High 0.70-1.30 [facility] Comment on above: Result Comment: The validity of the calculated GFR GFRAA in patients over 70 years has not been determined. Clinical correlation is essential. Performed By: #### L 3300.1050, L500.2500, L509.6000, L3430.0100 ####[facility] [address] [place], [address] EST GFR - AA 74 mL/min Normal >60 [facility] Comment on above: Result Comment: Afri can Citizen [place] GFR Calc Performed By: #### L 3300.1050, L500.2500, L509.6000, L3430.0100 ####[facility] [address] [place], [address] GAP 4 Low 5-15 [facility] Comment on above: Performed By: #### L 3300.1050, L500.2500, L509.6000, L3430.0100 ####[facility] [address] [place], [address] GFR/1.73 sq M.predicted among non-blacks MDRD (S/P/Bld) [Vol rate/Area] 61 mL/min/{1.73_m2} Normal >60 [facility] Comment on above: Result Comment: Non- GFR Calc Performed By: #### L 3300.1050, L500.2500, L509.6000, L3430.0100 ####[facility] [address] [place], [address] Glucose [Mass/Vol] 62 mg/dL Low 74-106 [facility] Comment on above: Performed By: #### L 3300.1050, L500.2500, L509.6000, L3430.0100 ####[facility] [address] [place], [address] Potassium [Moles/Vol] 4.3 mmol/L Normal 3.5-5.1 [facility] Comment on above: Performed By: #### L 3300.1050, L500.2500, L509.6000, L3430.0100 ####[facility] [address] [place], [address] Sodium [Moles/Vol] 141 mmol/L Normal 136-145 [facility] Comment on above: Performed By: #### L 3300.1050, L500.2500, L509.6000, L3430.0100 ####[facility] [address] [place], [address] Urea nitrogen [Mass/Vol] 19 mg/dL High 7-18 [facility] Comment on above: Performed By: #### L 3300.1050, L500.2500, L509.6000, L3430.0100 ####[facility] [address] [place], [address] CORTISOL SERUMon 07-05-2024 CORTISOL 10.30 ug/dL Normal 3.44-22.45 [facility] Comment on above: Result Comment: Adul t (AM) 5.27 - 22.45 ug/dL Adult (PM) 3.44 - 16.76 ug/dL Performed By: #### L 3300.1050, L500.2500, L509.6000, L3430.0100 ####[facility] [address] [place], [address] MR/Cr 07-05-2024 MR/[facility] [address] [place] [address] OFFICE VISIT Date of Service: 07/05/24 MR#: [id number] Acct: [id number] Name: FAIZAN PASTOR Rep #: [id number] : 2000 Provider: Dr. Soledad kwan MD Age/Sex: 23/M Location: [facility] Status: Signed Intake Vital Signs 06/22/24 12:18 07/05/24 09:24 Height 5 ft 11 in 5 ft 11 in Weight: 182 lb 2 oz BMI 25.4 BP 162/77 H Blood Pressure Location Lt brachial Position Sitting Respiration 16 Pulse 62 Pulse Source Monitor Temp 98.6 F Temp Source Temporal Pulse Oximetry (%) 98 Oxygen Delivery Method room air Intake Visit Reasons: [facility] ER FU Chief Complaint: [facility] er f/u Perinatology Physician Required: No Accompanied by: Self Is patient in pain?: No Allergies peanut Allergy (Verified 07/05/24 09:21) Anaphylaxis Medications ???Medication ???Instructions ???Recorded ???Confirmed ???Type epinephrine 0.3 mg/0.3 mL 0.3 mg IM Q5-15M PRN 01/05/23 07/05/24 History injection, auto-injector [facility] Medical History Encounter for wellness examination in adult Nausea Lightheadedness Allergic conjunctivitis Allergic rhinitis Surgical History History of appendectomy Family History Grandmother Arthritis Hypertension Pulmonary embolism 75 Grandfather Cancer MATERNAL-PANCRATIC , 76 PATERNAL-BLADDER, 75 Mother Thyroid disorder THYROID CANCER Social History adopted: No household members: other details: parents housing: house number of children: 0 current occupational status: unemployed current occupational exposures/hazards: No pets and animals: No leisure activities: sports and exercise history of recent travel: No sexually active: No Smoking Status: Never smoker alcohol intake: never substance use type: does not use well-balanced diet: daily or most days caffeine: No eating out: 1-3 times/week during the past year weight has: remained stable what type of physical activity do you participate in: running and weight training troy/orthodox: Uatsdin seatbelt use: always do you feel safe at home: Yes HPI HPI Chief Complaint: [facility] er f/u Details: FAIZAN PASTOR, is a 23 M who presents to the office today for follow-up/ER follow-up. 23-year-old gentleman. I saw him a couple weeks ago, where he was having what appeared to be some elevated blood pressures. He was also having a sense of headache, dizziness. Since he was seen in the office he has not had any recurrence of those symptoms but his blood pressure was noted to be elevated at work just shortly after our initial visit for this. He was referred to the ER. The labs were all reviewed that I had previously ordered. There was nothing untoward otherwise found and he was subsequently discharged. Over the last week or so, his blood pressures have actually been doing quite a bit better now, averaging approximately 128/80. He is not again having any untoward symptoms at this time. We reviewed his labs in detail. He had a mildly elevated creatinine 1.31. Otherwise his labs were unremarkable. Electrolytes were not abnormal and not pointing any specific direction. We discussed this in detail today. We also discussed the potential for discussing with nephrology if his repeat creatinine which we will do today is still borderline or elevated. This could reflect that he has had some elevation in blood pressure longer than he had suspected. In addition we discussed getting at least basic workup for some of the secondary causes which I think is not unreasonable. He is under a fair amount of stress but does not seem like it is any more so lately than it had been he states. Does have a little sense of anxiety at times which is chronic in nature and that may be contributing to this as well. Review of systems per chart. Physical exam. Vital signs on chart. Sclera are clear. Neck is supple. No cervical or supraclavicular nodes enlarged or tender. His lungs are without wheeze rhonchi or rales. Heart is regular. Not tachycardic. No gallops or rubs are readily identified. The remainder of exam unchanged. ROS Const Constitutional: No body ache, chills, excessive sweating, fatigue, fever(s), frequent falls, headache(s), snoring, weakness or change in appetite Eyes Eyes: No blurry vision, change in vision, eye pain or Light sensitivity ENT ENT: No abnormal hearing, ear or mastoid pain, tinnitus, nasal congestion, headache(s), neck pain or sore throat Resp Respiratory: No cough, shortness of breath, snoring or wheezing Cardio Cardiology: No chest pain at rest, chest pain w (more content not included)... Normal [facility] Emergency Department Summary on 06-22-2024 Emergency Department Summary [facility] Medical Records Department [address] [place] [address] Emergency Department Summary 06/22/24 MR#: [id number] Acct: [id number] Name: FAIZAN PASTOR #: [id number] : 2000 23 From: Ben Lopez MD PCP: Dr. Soledad Fooet MD Status:REG ER Location: ED HPI History of Present Illness Chief Complaint: Hypertension Informant: patient Onset/Context/Timing Onset: Days Context: Gradual Onset Timing: Intermittent Current Severity: Mild Maximum Severity: Mild Narrative Narrative: 23-year-old male there is no past medical history. Recently had elevated blood pressure readings at doctor's office. Had labs done were basically unremarkable. He has had some lightheaded and dizziness recently. He is currently on no medications. He was sent in today because his blood pressure was elevated. He denies any severe headaches or chest pain. No shortness of breath. Prior similar symptoms: No Recent Illness/Hospitalization: No PFSH [facility] Medical History Encounter for wellness examination in adult Nausea Lightheadedness Allergic conjunctivitis Allergic rhinitis Home Medications ???Medication ???Instructions ???Recorded ???Last Taken ???Type epinephrine 0.3 mg/0.3 mL 0.3 mg IM Q5-15M PRN 01/05/23 Unknown History injection, auto-injector Allergy/AdvReac Type Severity Reaction Status Date / Time peanut Allergy Anaphylaxis Verified 06/22/24 12:18 Family History Grandmother Arthritis Hypertension Pulmonary embolism 75 Grandfather Cancer MATERNAL-PANCRATIC , 76 PATERNAL-BLADDER, 75 Mother Thyroid disorder THYROID CANCER Surgical History History of appendectomy Social History adopted: No household members: other details: parents housing: house number of children: 0 current occupational status: unemployed current occupational exposures/hazards: No pets and animals: No leisure activities: sports and exercise history of recent travel: No sexually active: No Smoking Status: Never smoker alcohol intake: never substance use type: does not use well-balanced diet: daily or most days caffeine: No eating out: 1-3 times/week during the past year weight has: remained stable what type of physical activity do you participate in: running and weight training troy/orthodox: Uatsdin seatbelt use: always do you feel safe at home: Yes ROS ROS ED ROS Narrative Denies recent illness. Constitutional Constitutional ED: Denies chills or fever(s) Eyes Eyes: Denies blurry vision ENT ENT ED: Denies ear pain Cardiovascular Cardiovascular: Denies chest pain Respiratory/Chest Respiratory/Chest: Denies cough or dyspnea Gastrointestinal Gastrointestinal: Denies abdominal pain, constipation, diarrhea, melena, nausea or vomiting Genitourinary Genitourinary ED: Denies dysuria or hematuria Musculoskeletal Musculoskeletal: Denies arthralgias Integumentary Denies abscess Psychiatric Psychiatric: Denies depression Endocrine Endocrinology: Denies cold intolerance Hematologic/Lymphatic Hematologic/Lymphatic: Reports none Allergic/Immunologic Allergic/Immunologic ED: Denies mouth swelling, tongue swelling or urticaria EXAM Physical Exam Narrative Exam Narrative: 20-year-old male no acute distress vital signs stable initial blood pressure 178/80 9 repeat 159/77. H EENT exam normal. Pupils are reactive light. Extra motions are intact. No droop. No trauma. Neck nontender. Lungs clear. Heart regular rhythm no murmur. Abdomen soft nontender. Moving all 4 extremities. 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 Dorsi plantarflexion intact. Nontender. No edema. Back unremarkable. Neurologic exam normal. NIH 0. 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 Bilateral dorsi plantarflexion. Bilateral [id number]-ylhs. Bilateral fingertip to nose all within normal limits. He got up out of bed ambulating without any difficulty. Negative Romberg. Const Vital Signs: 06/22/24 12:18 06/22/24 12:29 06/22/24 12:30 Temperature 97.9 F Temperature Source Temporal Pulse Rate 72 72 Respiratory Rate 16 14 Respiratory Effort Normal Non-Labored Respiratory Pattern Normal Blood Pressure 178/89 H 159/77 H Blood Pressure Mean 118 104 Pulse Ox 100 100 Oxygen Delivery Method Room Air Room Air Positive well nourished and well developed; Negative for obese, cachectic, contractures or unkempt General Appearance ED: well developed and NAD; Negative for unkempt, cachectic, contractures, cyanotic, diaphoretic or pallor Nutritional Appearance: Negative for cachectic or obese HEENT Reports moist mucous membra (more content not included)... Normal [facility] CBC W/Diff, Automatedon 08-2 2-2024 Absolute Lymph 1.49 X10 3/uL Normal 0.83-4.51 [facility] Comment on above: Performed By: #### L 500.4050, L100.0100, L501.9520, L501.5200, L500.4100, L506.1000, L101.9900 ####[facility] [address] [place], [address] Absolute Neut 3.5 X10 3/uL Normal 2.0-7.7 [facility] Comment on above: Performed By: #### L 500.4050, L100.0100, L501.9520, L501.5200, L500.4100, L506.1000, L101.9900 ####[facility] [address] [place], [address] Basophils/100 WBC (Bld) 0.5 % Normal 0-1 [facility] Comment on above: Performed By: #### L 500.4050, L100.0100, L501.9520, L501.5200, L500.4100, L506.1000, L101.9900 ####[facility] [address] [place], [address] Eosinophils/100 WBC (Bld) 1.5 % Normal 0-5 [facility] Comment on above: Performed By: #### L 500.4050, L100.0100, L501.9520, L501.5200, L500.4100, L506.1000, L101.9900 ####[facility] [address] [place], [address] Erythrocyte distribution width (RBC) [Ratio] 11.8 % Normal 11.6-14.6 [facility] Comment on above: Performed By: #### L 500.4050, L100.0100, L501.9520, L501.5200, L500.4100, L506.1000, L101.9900 ####[facility] [address] [place], [address] Hematocrit (Bld) [Volume fraction] 50.9 % Normal 40-54 [facility] Comment on above: Performed By: #### L 500.4050, L100.0100, L501.9520, L501.5200, L500.4100, L506.1000, L101.9900 ####[facility] [address] [place], [address] Hemoglobin (Bld) [Mass/Vol] 17.1 g/dL High 13.0-16.5 [facility] Comment on above: Performed By: #### L 500.4050, L100.0100, L501.9520, L501.5200, L500.4100, L506.1000, L101.9900 ####[facility] [address] [place], [address] IG% 0.400 Normal 0.0-0.9 [facility] Comment on above: Result Comment: IG% - Immature Granulocytes (promyelocytes, myelocytes and metamyelocytes) > 1% indicates that a LEFT SHIFT is Present. Performed By: #### L 500.4050, L100.0100, L501.9520, L501.5200, L500.4100, L506.1000, L101.9900 ####[facility] [address] [place], [address] Lymphocytes/100 WBC (Bld) 27.1 % Normal 19-41 [facility] Comment on above: Performed By: #### L 500.4050, L100.0100, L501.9520, L501.5200, L500.4100, L506.1000, L101.9900 ####[facility] [address] [place], [address] MCH (RBC) [Entitic mass] 30.5 pg Normal 27.0-32.0 [facility] Comment on above: Performed By: #### L 500.4050, L100.0100, L501.9520, L501.5200, L500.4100, L506.1000, L101.9900 ####[facility] [address] [place], [address] MCHC (RBC) [Mass/Vol] 33.6 g/dL Normal 32-36 [facility] Comment on above: Performed By: #### L 500.4050, L100.0100, L501.9520, L501.5200, L500.4100, L506.1000, L101.9900 ####[facility] [address] [place], [address] MCV (RBC) [Entitic vol] 90.9 fL Normal 80-94 [facility] Comment on above: Performed By: #### L 500.4050, L100.0100, L501.9520, L501.5200, L500.4100, L506.1000, L101.9900 ####[facility] [address] [place], [address] Monocytes/100 WBC (Bld) 7.3 % Normal 0-10 [facility] Comment on above: Performed By: #### L 500.4050, L100.0100, L501.9520, L501.5200, L500.4100, L506.1000, L101.9900 ####[facility] [address] [place], [address] Neutrophils/100 WBC (Bld) 63.2 % Normal 47-70 [facility] Comment on above: Performed By: #### L 500.4050, L100.0100, L501.9520, L501.5200, L500.4100, L506.1000, L101.9900 ####[facility] [address] [place], [address] Nucleated RBC (Bld) [#/Vol] 0 10*3/uL Normal 0-5 [facility] Comment on above: Performed By: #### L 500.4050, L100.0100, L501.9520, L501.5200, L500.4100, L506.1000, L101.9900 ####[facility] [address] [place], [address] Platelet mean volume (Bld) [Entitic vol] 9.6 fL Normal 6.2-12.0 [facility] Comment on above: Performed By: #### L 500.4050, L100.0100, L501.9520, L501.5200, L500.4100, L506.1000, L101.9900 ####[facility] [address] [place], [address] Platelets (Bld) [#/Vol] 251 10*3/uL Normal 150-450 [facility] Comment on above: Performed By: #### L 500.4050, L100.0100, L501.9520, L501.5200, L500.4100, L506.1000, L101.9900 ####[facility] [address] [place], [address] RBC (Bld) [#/Vol] 5.60 10*6/uL Normal 4.6-6.2 [facility] Comment on above: Performed By: #### L 500.4050, L100.0100, L501.9520, L501.5200, L500.4100, L506.1000, L101.9900 ####[facility] [address] [place], [address] RDW SD 39.4 fl Normal 35.1-43.9 [facility] Comment on above: Performed By: #### L 500.4050, L100.0100, L501.9520, L501.5200, L500.4100, L506.1000, L101.9900 ####[facility] [address] [place], [address] WBC (Bld) [#/Vol] 5.5 10*3/uL Normal 4.4-11.0 [facility] Comment on above: Performed By: #### L 500.4050, L100.0100, L501.9520, L501.5200, L500.4100, L506.1000, L101.9900 ####[facility] [address] [place], [address] Comprehensive Metabolic Prof ilon 06-21-2024 Albumin [Mass/Vol] 4.3 g/dL Normal 3.2-5.0 [facility] Comment on above: Performed By: #### L 500.4050, L100.0100, L501.9520, L501.5200, L500.4100, L506.1000, L101.9900 ####[facility] [address] [place], [address] Albumin/Globulin [Mass ratio] 1.5 {ratio} Normal 0.9-2.4 [facility] Comment on above: Performed By: #### L 500.4050, L100.0100, L501.9520, L501.5200, L500.4100, L506.1000, L101.9900 ####[facility] [address] [place], [address] ALK P 95 U/L Normal 45-117 [facility] Comment on above: Performed By: #### L 500.4050, L100.0100, L501.9520, L501.5200, L500.4100, L506.1000, L101.9900 ####[facility] [address] [place], [address] ALT [Catalytic activity/Vol] 24 U/L Normal 16-61 [facility] Comment on above: Performed By: #### L 500.4050, L100.0100, L501.9520, L501.5200, L500.4100, L506.1000, L101.9900 ####[facility] [address] [place], [address] AST [Catalytic activity/Vol] 23 U/L Normal 15-37 [facility] Comment on above: Performed By: #### L 500.4050, L100.0100, L501.9520, L501.5200, L500.4100, L506.1000, L101.9900 ####[facility] [address] [place], [address] Bilirubin [Mass/Vol] 1.20 mg/dL High 0.20-1.00 [facility] Comment on above: Result Comment: For patients on eltrombopag therapy, use of Dimension [place] TBIL is not recommended. Performed By: #### L 500.4050, L100.0100, L501.9520, L501.5200, L500.4100, L506.1000, L101.9900 ####[facility] [address] [place], [address] BUN/CRE 12.2 RATIO Normal 10-20 [facility] Comment on above: Performed By: #### L 500.4050, L100.0100, L501.9520, L501.5200, L500.4100, L506.1000, L101.9900 ####[facility] [address] [place], [address] CA,Total 9.5 mg/dL Normal 8.5-10.1 [facility] Comment on above: Performed By: #### L 500.4050, L100.0100, L501.9520, L501.5200, L500.4100, L506.1000, L101.9900 ####[facility] [address] [place], [address] Chloride [Moles/Vol] 103 mmol/L Normal 98-107 [facility] Comment on above: Performed By: #### L 500.4050, L100.0100, L501.9520, L501.5200, L500.4100, L506.1000, L101.9900 ####[facility] [address] [place], [address] CO2 [Moles/Vol] 30.0 mmol/L Normal 21.0-32.0 [facility] Comment on above: Performed By: #### L 500.4050, L100.0100, L501.9520, L501.5200, L500.4100, L506.1000, L101.9900 ####[facility] [address] [place], [address] Creatinine [Mass/Vol] 1.31 mg/dL High 0.70-1.30 [facility] Comment on above: Result Comment: The validity of the calculated GFR GFRAA in patients over 70 years has not been determined. Clinical correlation is essential. Performed By: #### L 500.4050, L100.0100, L501.9520, L501.5200, L500.4100, L506.1000, L101.9900 ####[facility] [address] [place], [address] EST GFR - AA 87 mL/min Normal >60 [facility] Comment on above: Result Comment: Afri can Citizen [place] GFR Calc Performed By: #### L 500.4050, L100.0100, L501.9520, L501.5200, L500.4100, L506.1000, L101.9900 ####[facility] [address] [place], [address] GAP 5 Normal 5-15 [facility] Comment on above: Performed By: #### L 500.4050, L100.0100, L501.9520, L501.5200, L500.4100, L506.1000, L101.9900 ####[facility] [address] [place], [address] GFR/1.73 sq M.predicted among non-blacks MDRD (S/P/Bld) [Vol rate/Area] 72 mL/min/{1.73_m2} Normal >60 [facility] Comment on above: Result Comment: Non- GFR Calc Performed By: #### L 500.4050, L100.0100, L501.9520, L501.5200, L500.4100, L506.1000, L101.9900 ####[facility] [address] [place], [address] Globulin (S) [Mass/Vol] 2.9 g/dL Normal 2.2-4.2 [facility] Comment on above: Performed By: #### L 500.4050, L100.0100, L501.9520, L501.5200, L500.4100, L506.1000, L101.9900 ####[facility] [address] [place], [address] Glucose [Mass/Vol] 78 mg/dL Normal 74-106 [facility] Comment on above: Performed By: #### L 500.4050, L100.0100, L501.9520, L501.5200, L500.4100, L506.1000, L101.9900 ####[facility] [address] [place], [address] Potassium [Moles/Vol] 4.1 mmol/L Normal 3.5-5.1 [facility] Comment on above: Performed By: #### L 500.4050, L100.0100, L501.9520, L501.5200, L500.4100, L506.1000, L101.9900 ####[facility] [address] [place], [address] Sodium [Moles/Vol] 138 mmol/L Normal 136-145 [facility] Comment on above: Performed By: #### L 500.4050, L100.0100, L501.9520, L501.5200, L500.4100, L506.1000, L101.9900 ####[facility] [address] [place], [address] T PROT 7.2 g/dL Normal 6.4-8.2 [facility] Comment on above: Performed By: #### L 500.4050, L100.0100, L501.9520, L501.5200, L500.4100, L506.1000, L101.9900 ####[facility] [address] [place], [address] Urea nitrogen [Mass/Vol] 16 mg/dL Normal 7-18 [facility] Comment on above: Performed By: #### L 500.4050, L100.0100, L501.9520, L501.5200, L500.4100, L506.1000, L101.9900 ####[facility] [address] [place], [place], [id number] Erythrocyte Sed Rateon 06-21 SED RATE < 1 Normal 0-20 [facility] Comment on above: Performed By: #### L 500.4050, L100.0100, L501.9520, L501.5200, L500.4100, L506.1000, L101.9900 ####[facility] [address] [place], [place], [id number] Lipid Profileon 06-21-2024 Cholesterol [Mass/Vol] 179 mg/dL Normal 200 [facility] Comment on above: Result Comment: <200 mg/dL Desirable 200-240 mg/dL Borderline >240 mg/dL High Risk Performed By: #### L 500.4050, L100.0100, L501.9520, L501.5200, L500.4100, L506.1000, L101.9900 ####[facility] [address] [place], [address] Cholesterol in HDL [Mass/Vol] 68 mg/dL Normal [facility] Comment on above: Result Comment: The drugs N-Acetylcysteine and Metamizole may falsely depress this assay. Reference Range HDL <40 mg/dL Low HDL Cholesterol HDL >or= 60 mg/dL High HDL Cholesterol Performed By: #### L 500.4050, L100.0100, L501.9520, L501.5200, L500.4100, L506.1000, L101.9900 ####[facility] [address] [place], [address] Cholesterol in LDL [Mass/Vol] 91 mg/dL Normal 0-130 [facility] Comment on above: Performed By: #### L 500.4050, L100.0100, L501.9520, L501.5200, L500.4100, L506.1000, L101.9900 ####[facility] [address] [place], [address] Cholesterol in VLDL [Mass/Vol] 20 mg/dL Normal 5-40 [facility] Comment on above: Performed By: #### L 500.4050, L100.0100, L501.9520, L501.5200, L500.4100, L506.1000, L101.9900 ####[facility] [address] [place], [address] Triglyceride [Mass/Vol] 99 mg/dL Normal [facility] Comment on above: Result Comment: The drugs N-Acetylcysteine and Metamizole may falsely depress this assay. Serum Triglycerides Reference Interval Normal <150 mg/dL Borderline high 150 - 199 mg/dL High 200 - 499 mg/dL Very High > or = 500 mg/dL Performed By: #### L 500.4050, L100.0100, L501.9520, L501.5200, L500.4100, L506.1000, L101.9900 ####[facility] [address] [place], [address] MR/BMS.IMBon 06-21-2024 MR/BMS.IMB [facility] [address] [place] [address] OFFICE VISIT Date of Service: 06/21/24 MR#: [id number] Acct: [id number] Name: FAIZAN PASTOR Rep #: [id number] : 2000 Provider: Dr. Soledad kwan MD Age/Sex: 23/M Location: [facility] Status: Signed Intake Vital Signs 03/09/22 07:32 06/21/24 08:35 06/21/24 09:00 06/21/24 09:02 06/21/24 09:04 Height 5 ft 11 in 5 ft 11 in Weight: 183 lb BMI 25.5 BP 144/87 H 154/94 H 158/81 H 149/87 H Blood Pressure Location Lt brachial Rt brachial Rt brachial Rt brachial Position Sitting Supine Sitting Standing Respiration 16 Pulse 67 63 69 77 Pulse Source Monitor Monitor Monitor Monitor Temp 98.6 F Temp Source Temporal Pulse Oximetry (%) 100 Oxygen Delivery Method room air Intake Visit Reasons: Spot on the back of neck Chief Complaint: Lump on back of neck, recent nausea, dizziness Accompanied by: Self Is patient in pain?: No Allergies peanut Allergy (Verified 06/21/24 08:32) Anaphylaxis Medications ???Medication ???Instructions ???Recorded ???Confirmed ???Type epinephrine 0.3 mg/0.3 mL 0.3 mg IM Q5-15M PRN 01/05/23 06/21/24 History injection, auto-injector [facility] Medical History (Updated 06/21/24 @ 09:[address] Soledad Foote MD) Encounter for wellness examination in adult Nausea Lightheadedness Allergic conjunctivitis Allergic rhinitis Surgical History History of appendectomy Family History Grandmother Arthritis Hypertension Pulmonary embolism 75 Grandfather Cancer MATERNAL-PANCRATIC , 76 PATERNAL-BLADDER, 75 Mother Thyroid disorder THYROID CANCER Social History adopted: No household members: other details: parents housing: house number of children: 0 current occupational status: unemployed current occupational exposures/hazards: No pets and animals: No leisure activities: sports and exercise history of recent travel: No sexually active: No Smoking Status: Never smoker alcohol intake: never substance use type: does not use well-balanced diet: daily or most days caffeine: No eating out: 1-3 times/week during the past year weight has: remained stable what type of physical activity do you participate in: running and weight training troy/orthodox: Uatsdin seatbelt use: always do you feel safe at home: Yes HPI HPI Chief Complaint: Lump on back of neck, recent nausea, dizziness Details: FAIZAN PASTOR, is a 23 M who presents to the office today for an annual wellness checkup/evaluate lightheadedness dizziness sensation/skin lesion neck. 23-year-old gentleman who established with me last year. 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 Planning to do cardiac rehab still. He is very good high-quality diet overall. Again continuing to be physically active, weightlifting, little bit of cardio. For the last 1 week he has had vague sense of nausea, little bit of lightheadedness without vertigo but some unsteady feeling. Mild headache at most. No high-grade fever or shaking chills. No cough, congestion, dysuria, urgency or frequency. Is appetite has been somewhat down but he still is eating. Regular bowel movements still. Normal urinary output. He has not had emesis but again some mild nausea sensation. He does note that perhaps the lightheadedness is a bit postural related or at least exacerbated in that circumstance. No sick contacts. Otherwise he has noted for about 1 year, a lump, posterior lower neck to upper thoracic area. Not necessarily painful or tender but is irritating at times due to its position midline. He is quite active physically, exercising regularly and that may be impacting that to some degree. Review of systems per chart. No chest pain, chest tightness, shortness of breath, wheeze, cough, congestion, fever, chills, vomiting. Bowel movements are regular. No diarrhea, no constipation. No dysuria, urgency or frequency. No polyuria. Physical exam. Vital signs on chart. Orthostatic vital signs on chart. EOMI. PERRLA. Sclera are clear. TMs are unremarkable with normal light reflexes. Canals are unremarkable. Posterior pharynx is unremarkable. Good dentition. No cervical or supraclavicular lymph nodes enlarged or tender. No clear thyromegaly. No thyroid nodules readily palpable. Lungs are without wheeze, rhonchi, rales. No E/A changes are heard. Heart is regular. Not tachycardic. No clear murmur, rub, or gallop is identified. The abdomen is soft. Bowel sounds are present. There is a lesion, posterior neck, midline really near vertebral (more content not included)... Normal [facility] Magnesiumon 06-21-2024 Magnesium [Mass/Vol] 2.6 mg/dL Normal 1.6-2.6 [facility] Comment on above: Performed By: #### L 500.4050, L100.0100, L501.9520, L501.5200, L500.4100, L506.1000, L101.9900 ####[facility] [address] [place], [place], [id number] Thyroid Stim Hormone (TSH)on 06-21-2024 TSH 0.894 uIU/mL Normal 0.358-3.740 [facility] Comment on above: Performed By: #### L 500.4050, L100.0100, L501.9520, L501.5200, L500.4100, L506.1000, L101.9900 ####[facility] [address] [place], [address] Vitamin D,25 Hydroxyon 06-21 Vitamin D 25-OH 39.4 ng/mL Normal [facility] Comment on above: Result Comment: Radha min D 25(OH) Status Range Deficiency <20 ng/mL (50nmol/L) Insufficiency 20 - 30 ng/mL (50 - 75 nmol/L) Sufficiency 30 - 100 ng/mL (75 - 250 nmol/L) Toxicity >100 ng/mL (>250 nmol/L) Performed By: #### L 500.4050, L100.0100, L501.9520, L501.5200, L500.4100, L506.1000, L101.9900 ####[facility] [address] [place], [address] CNOVon 10-07-2022 CNOV Office Visit (PEDSWS ) FAIZAN PASTOR ([id number]) 1 M Date Time Provider Department 10/07/22 9:15 AM DELIA FARRIS During your visit today, we recorded the following information about you: Temperature Pulse Respiration Blood pressure 98.4 degrees 84/minute 12/minute 130/74 Weight 80.2 kg Delia Farris APRN.CNP 10/07/2022 9:38 AM Signed PEDIATRIC SICK VISIT SERVICE DATE: 10/07/2022 SUBJECTIVE: Faizan Pastor is a 21 year old presenting to clinic for evaluation of sore throat, cough, runny nose, and nasal congestion. He also needs an epi-pen refill. Patient presents with: Sore Throat: Onset on 10/03, no known fever. Cough: Onset on 10/04, non productive Rhinitis: Onset on 10/04 Nasal Congestion: Onset on 10/04 Rx Refills: Needs refill of EPI PENS History was obtained from: patient Current symptoms: FEVER: not present at this time NASAL CONGESTION: for 4 day(s), along with rhinitis EAR SYMPTOMS: not present at this time COUGH: present for 4 day(s), dry, no phlegm SORE THROAT: for 5 day(s) HEADACHE: not present at this time VOMITING: not present at this time NAUSEA: not present at this time DIARRHEA: not present at this time ABDOMINAL PAIN: not present at this time RASH: not present at this time GENERAL: Decreased activity Oral fluid intake: no significant change Solid food intake: decreased Sick contacts: No known sick contacts HISTORY: ACTIVE PROBLEM LIST Allergy to Peanuts Spermatocele of Epididymis Left Varicocele PAST MEDICAL HISTORY Diagnosis Date Epididymal cyst 06/06/2015 + mild right hydrocele [facility] - PAST MEDICAL HISTORY OF 01/06/02 distal fibula fracture [facility] - PAST MEDICAL HISTORY OF 12/02/2005 normal color vision PAST SURGICAL HISTORY Procedure Laterality Date APPENDECTOMY 08/2008 Allergies: ALLERGIES Allergen Reactions Peanuts Medications: EPINEPHrine (EPIPEN) 0.3 mg/0.3 mL auto-injector Inject to the anterior thigh as directed by the allergy action plan. If used must seek emergent medical care. May repeat a second dose in 5 minutes awaiting emergency care. Dispense 2 twin packs with trainers. OBJECTIVE: BP 130/74 Pulse 84 Temp 36.9 ?C (98.4 ?F) (Temporal Artery) Resp 12 Wt 80.2 kg (176 lb 12 oz) BMI 25.53 kg/m? General: well appearing, alert and active in no apparent distress Eyes: conjunctiva clear, PERRL Ears: TMs translucent bilaterally, normal landmarks noted Nose: clear rhinorrhea/nasal congestion OP: tonsils erythematous 2+, scant exudate on right tonsil, no lesions Neck: supple, no adenopathy Lungs: clear to auscultation bilaterally, good air exchange, no wheezes or crackles CVS: Normal rate, regular rhythm, no murmur Skin: No rashes, lesions or skin changes ASSESSMENT/PLAN: Encounter Diagnosis ICD-10-CM 1. Upper respiratory tract infection, unspecified type J06.9 2. Acute pharyngitis, unspecified etiology J02.9 STREP A MOLECULAR (POC) COVID WITH FLUA+B, ROUTINE 3. Allergy to peanuts Z91.010 EPINEPHrine (EPIPEN) 0.3 mg/0.3 mL auto-injector - Molecular strep test negative in office --Covid/Flu test done in office and results pending. Isolate pending test results. --Encourage plenty of fluids --May take honey or use salt water gargles as needed for throat pain --Use a humidifier or steam from the shower and nasal saline as needed to help with congestion --Give acetaminophen (Tylenol) or ibuprofen (Motrin) as needed for fever or pain --Return to clinic for persistent or worsening symptoms, or for other concerns This patient encounter involved the screening or treatment of novel coronavirus infection (COVID-19). SIGNATURE: Delia Farris APRN.CNP PATIENT NAME: Faizan Pastor DATE: October 07, 2022 TIME: 8:18 AM Allergies As of Date: 10/07/2022 Noted Allergy Reaction PEANUTS 08/07/2005 Date Reviewed: 10/07/2022 Reviewed by: Mariann Carcamo LPN - Fully Assessed Reason for Visit: Sore Throat [200] Cmt: Onset on 10/03, no known fever. Cough [28] Cmt: Onset on 10/04, non productive Rhinitis [369] Cmt: Onset on 10/04 Nasal Congestion [235] Cmt: Onset on 10/04 Rx Refills [128] Cmt: Needs refill of EPI PENS Primary Visit Diagnosis:Upper respiratory tract infection, unspecified type [J06.9] Other Visit Diagnoses:Acute pharyngitis, unspecified etiology [J02.9] Allergy to peanuts [Z91.010] Order(s):EPINEPHrine (EPIPEN) 0.3 mg/0.3 mL auto-injectorInject to the anterior thigh as directed by the allergy action plan. If used must seek emergent medical care. May repeat a second dose in 5 minutes awaiting emergency care. Dispense 2 twin packs with trainers.Disp: 2 EachRfl: 1 STREP A MOLECULAR (POC) [2372052] Order #: [id number]. #:[id number] COVID WITH FLUA+B, ROUTINE [SQCOVFLU] Order #: [id number]. #:[id number] Pr (more content not included)... Normal [facility] STREP A MOLECULAR (POC)on Procedural Control Valid [facility] Strep A (POCT) Negative Negative [facility] CNOVon 05-20-2022 CNOV Office Visit (PEDSWS ) FAIZAN PASTOR ([id number]) 1 M Date Time Provider Department 05/20/22 3:15 PM DELIA FARRIS During your visit today, we recorded the following information about you: Temperature Pulse Respiration Blood pressure 98.1 degrees 76/minute 16/minute 136/78 Weight 79.6 kg Delia Farris APRN.CNP 05/20/2022 3:42 PM Signed PEDIATRIC SICK VISIT SERVICE DATE: 05/20/2022 SUBJECTIVE: Faizan Pastor is a 21 year old male presenting to clinic for evaluation of left ear pain. Patient reports pain in left ear pain for a few days. No discharge from the ear. Tried ear drops but didn't help. Has not taken ibuprofen or acetaminophen. Patient was seen in clinic by PCP on 05/13/22 and treated with amoxicillin for sinusitis. He completed the 7 day course yesterday. He was also treated for conjunctivitis. All prior symptoms including conjunctivitis, rhinorrhea, and cough have resolved. No fever. History was obtained from: patient HISTORY: ACTIVE PROBLEM LIST Allergy to Peanuts Spermatocele of Epididymis Left Varicocele PAST MEDICAL HISTORY Diagnosis Date - Epididymal cyst 06/06/2015 + mild right hydrocele - [facility] - PAST MEDICAL HISTORY OF 01/06/02 distal fibula fracture - [facility] - PAST MEDICAL HISTORY OF 12/02/2005 normal color vision PAST SURGICAL HISTORY Procedure Laterality Date - APPENDECTOMY 08/2008 Allergies: ALLERGIES Allergen Reactions - Peanuts Medications: EPINEPHrine (EPIPEN) 0.3 mg/0.3 mL auto-injector Inject to the anterior thigh as directed by the allergy action plan. If used must seek emergent medical care. May repeat a second dose in 5 minutes awaiting emergency care. Dispense 2 twin packs with trainers. EPINEPHrine (AUVI-Q) 0.3 mg/0.3 mL auto-injector Inject to the anterior thigh as directed by the allergy action plan. If used must seek emergent medical care. May repeat a second dose in 5 minutes awaiting emergency care. Dispense 2 twin packs with trainers. amoxicillin-clavulanic acid (AUGMENTIN) 875-125 mg per tablet Take 1 tablet by mouth twice daily for 7 days. REVIEW OF SYSTEMS: GENERAL: Negative for fevers HEENT: Positive for: left ear pain, no headache, no sore throat or rhinorrhea RESPIRATORY: Negative for cough, wheezing or respiratory distress GI: Negative for vomiting or diarrhea. SKIN: Negative for lesions, rash, and itching. OBJECTIVE: BP 136/78 Pulse 76 Temp 36.7 ?C (98.1 ?F) (Temporal Artery) Resp 16 Wt 79.6 kg (175 lb 8 oz) BMI 25.35 kg/m? General: well appearing, alert and active in no apparent distress Eyes: conjunctiva clear, PERRL Ears: right TM erythematous with bulging, left TM pearly singh with normal landmarks Nose: no erythema or exudate OP: moist without lesions, tonsils 2+, no exudates Neck: supple, no adenopathy Lungs: clear to auscultation bilaterally, good air exchange, no retractions, no wheezes CVS: Normal rate, regular rhythm, no murmur Skin: No rashes, lesions or skin changes ASSESSMENT/PLAN: Encounter Diagnosis ICD-10-CM 1. Acute suppurative otitis media of left ear without spontaneous rupture of tympanic membrane, recurrence not specified H66.002 amoxicillin-clavulanic acid (AUGMENTIN) 875-125 mg per tablet --Start antibiotics and be sure to complete entire 7 day course --Take acetaminophen (Tylenol) or ibuprofen (Motrin or Advil) PRN for pain or fever --Return to clinic if symptoms worsen or having fever after 48 hours of treatment SIGNATURE: Delia Farris APRN.CNP PATIENT NAME: Faizan Pastor DATE: May 20, 2022 TIME: 3:23 PM Delia Farris APRN.CNP 05/20/2022 3:25 PM Signed 5 to Go!TM Healthy Kids Inside AND Out 5 Eat FIVE fruits and veggies a day 4 Give and get FOUR compliments a day 3 Consume THREE calcium products a day 2 Limit media time to TWO hours a day 1 Get at least ONE hour of exercise a day 0 Consume ZERO sugar-sweetened drinks Go! Be healthy, inside and out! [email or web address].org/5toG o Referring Provider: SELF [200] Allergies As of Date: 05/20/2022 Noted Allergy Reaction PEANUTS 08/07/2005 Date Reviewed: 05/20/2022 Reviewed by: Delia Farris APRN.GUIDE TRAVEL - Fully Assessed Reason for Visit: Left ear pain [Other] Cmt: reporting pain for a couple of days, completed amoxicillin yesterday for sinusitis. Primary Visit Diagnosis:Acute suppurative otitis media of left ear without spontaneous rupture of tympanic membrane, recurrence not specified [H66.002] Order(s):amoxicillin-clavula cedrick acid (AUGMENTIN) 875-125 mg per tabletTake 1 tablet by mouth twice daily for 7 days.Disp: 14 tabletRfl: 0 Prescriptions as of 05/20/2022 - amoxicillin-clavulanic acid (AUGMENTIN) 875-125 mg per tablet Take 1 tablet by mouth twice daily for 7 days. - EPINEPHrine (EPIPEN) 0.3 mg/0.3 mL auto-injector Inject (more content not included)... Normal [facility] CNOVon 05-13-2022 CNOV Office Visit (PEDSWS ) FAIZAN PASTOR ([id number]) 1 M Date Time Provider Department 05/13/22 2:15 PM ROXANNE KELLOGG During your visit today, we recorded the following information about you: Temperature Pulse Respiration Weight 97.9 degrees 62/minute 14/minute 80.6 kg Roxanne Kellogg MD 07/15/2022 11:54 AM Addendum 21-year-old male presents the office today for concerns of bilateral eye pruritus and discharge present for 3 days. Additionally the patient has 10 days of rhinorrhea and cough. Patient was seen at a local urgent care where he was given a prescription for Visine-A Iliana and a Medrol pack. Patient states he has significant discomfort with the Visine-A. He has not started the Medrol pack. No fevers are present. He denies eye pruritus or sneezing. ACTIVE PROBLEM LIST Allergy to Peanuts Spermatocele of Epididymis Left Varicocele PAST MEDICAL HISTORY Diagnosis Date - Epididymal cyst 06/06/2015 + mild right hydrocele - [facility] - PAST MEDICAL HISTORY OF 01/06/02 distal fibula fracture - [facility] - PAST MEDICAL HISTORY OF 12/02/2005 normal color vision PAST SURGICAL HISTORY Procedure Laterality Date - APPENDECTOMY 08/2008 ALLERGIES Allergen Reactions - Peanuts 05/13/22 1408 Pulse: 62 Resp: 14 Temp: 36.6 ?C (97.9 ?F) TempSrc: Temporal Weight: 80.6 kg (177 lb 9.6 oz) GENERAL: alert and active in no apparent distress, nontoxic-appearing HEAD: Normocephalic, atraumatic EYES: EOM's intact, conjunctiva with bilateral injection and scant purulent discharge but no preseptal edema or erythema present EARS: On initial examination both external auditory canals were completely occluded with cerumen. Using a curette I was able to remove all the cerumen from the right external auditory canal. I was only able to remove partial amounts of cerumen from the left external auditory canal. The left external auditory canal was then irrigated thoroughly. Reexamination: External auditory canals are free of lesions bilaterally. Tympanic membranes are intact bilaterally without evidence of fluid in the middle ear space NOSE/SINUSES : Nares normal without discharge OROPHARYNX:moist mucous membranes, tonsils without hypertrophy and no exudates present NECK: Negative for anterior or posterior cervical adenopathy CARDIOVASCULAR : Regular Rate and Rhythm without murmurs or clicks, well perfused LUNGS: clear to auscultation, excellent air exchange, resonant to percussion, easy respirations without grunting/flaring/retracting. EXTREMITIES: No clubbing, cyanosis, or edema. NEUROLOGICAL : Muscle tone normal and Normal age appropriate gait SKIN : normal color, no jaundice or rash and Normal skin turgor UNIVERSAL PROTOCOL / SAFETY CHECKLIST Procedure to be Performed: Bilateral cerumen impaction removal Sign In: A Moment of CARE was completed. Personnel directly involved with the procedure wore the appropriate PPE (Personal Protective Equipment). Patient/Surrogate Stated/Verified: PATIENT VERIFIED(optional for EMERGENT procedures): Patient name, Date of , Relevant allergies and The intended procedure Time Out Communication: Intended patient and procedure match the source documents. Consent documented and matches the intended procedure. Sign Out: SIGN OUT (optional for EMERGENT procedures): No specimen collected. Roxanne Kellogg MD Impression: Acute bacterial conjunctivitis of both eyes (primary encounter diagnosis) Acute non-recurrent maxillary sinusitis Bilateral impacted cerumen Plan: Office Visit on 05/13/22 - amoxicillin (POLYMOX, AMOXIL) 500 mg capsule - ciprofloxacin HCl (CILOXAN) 0.3 % ophthalmic solution Education given. Course of illness/condition and rationale for treatment discussed. I spent a total of 25 minutes on the date of the service which included preparing to see the patient, [id number] patient care, completing clinical documentation, obtaining and/or reviewing separately obtained history, performing a medically appropriate examination, counseling and educating the patient/family/caregiver and ordering medications, tests, or procedures. Follow-up prn Roxanne Kellogg MD [facility] Department of Pediatrics, [facility] Roxanne Kellogg MD 05/14/2022 5:45 PM Addendum Referring Provider: SELF [[id number]] Allergies As of Date: 05/13/2022 Noted Allergy Reaction PEANUTS 08/07/2005 Date Reviewed: 05/13/2022 Reviewed by: Patricia Streeter Ma - Fully Assessed Reason for Visit: Cold Symptoms [Other] Cmt: Red eyes/discharge x2 days, cough, runny nose, ST x1 week, ear pain started today. No known fevers. Has taken 2 at home covid test and both neg Primary Visit Diagnosis:Acute bacterial conjunctivitis of both eyes [H10.33] Other Visit Diagnoses:Acute non-recurrent maxillary sinusitis [J01.00] Bilateral impacted cerumen [H61.23] Order(s):[ (more content not included)... [facility] Bas[facility] 2021 Bilirubin [Mass/Vol] 0.70 mg/dL 0.20-1.00 [facility] Work Phone: Comment on above: For patients on eltr ombopag therapy, use of Dimension [place] TBIL is not recommended. Protein [Mass/Vol] 7.2 g/dL 6.4-8.2 [facility] Work Phone: Direct bilirubinon Bilirubin.direct [Mass/Vol] 0.18 mg/dL 0.00-0.30 [facility] Work Phone: Laboratory - Chemistry and C hemistry - challengeon 03-31-2022 ALP [Catalytic activity/Vol] 94 U/L 45-117 [facility] Work Phone: ALT [Catalytic activity/Vol] 73 U/L 16-61 [facility] Work Phone: Globulin (S) [Mass/Vol] 2.9 g/dL 2.2-4.2 [facility] Work Phone: Serum or plasma albumin abhishek urement (mass/volume)on 03-31-2022 Albumin [Mass/Vol] 4.3 g/dL 3.2-5.0 [facility] Work Phone: Thin prep Papanicolaou smear with manual screeningon 03-31-2022 Thin prep Papanicolaou smear with manual screening 35 U/L 15-37 [facility] Work Phone: Basophil percentageon 2021 Bilirubin [Mass/Vol] 1.60 mg/dL 0.20-1.00 [facility] Work Phone: Comment on above: For patients on eltr ombopag therapy, use of Dimension [place] TBIL is not recommended. Protein [Mass/Vol] 7.2 g/dL 6.4-8.2 [facility] Work Phone: CNOVon 03-11-2022 CNOV Office Visit (PEDSWS ) FAIZAN PASTOR ([id number]) 1 M Date Time Provider Department 03/11/22 4:45 PM ROXANNE KELLOGG During your visit today, we recorded the following information about you: Temperature Pulse Respiration Weight 99.2 degrees 72/minute 12/minute 81.4 kg Roxanne Kellogg MD 03/11/2022 1:19 PM Signed 21-year-old male seen today for complaints of sore throat. He was seen at the local hospital urgent care on March 09, 2022 with a 5-day history of sore throat. Patient was prescribed Augmentin. Streptococcal assessment was not done. No other labs. Patient has been compliant with the Augmentin but complains of significant sore throat and pain. He denies any otalgia. He denies dysphagia, hoarseness, trismus or inability to control oral secretions. No vomiting or diarrhea are present. No history consistent with jaundice. No rashes are present. Not with active fevers. ACTIVE PROBLEM LIST Allergy to Peanuts Spermatocele of Epididymis Left Varicocele PAST MEDICAL HISTORY Diagnosis Date - Epididymal cyst 06/06/2015 + mild right hydrocele - [facility] - PAST MEDICAL HISTORY OF 01/06/02 distal fibula fracture - [facility] - PAST MEDICAL HISTORY OF 12/02/2005 normal color vision PAST SURGICAL HISTORY Procedure Laterality Date - APPENDECTOMY 08/2008 ALLERGIES Allergen Reactions - Peanuts 03/11/22 1108 Pulse: 72 Resp: 12 Temp: 37.3 ?C (99.2 ?F) TempSrc: Temporal Weight: 81.4 kg (179 lb 6.4 oz) GENERAL: alert and active in no apparent distress, nontoxic-appearing HEAD: Normocephalic, atraumatic EYES: EOM's intact, conjunctiva without injection or discharge, no scleral icterus is present EARS: External auditory canals are free of lesions bilaterally. Tympanic membranes are intact bilaterally without evidence of fluid in the middle ear space NOSE/SINUSES : Nares normal without discharge OROPHARYNX:moist mucous membranes, tonsils are 3+ with erythema and exudate, no palatal petechiae are noted, the uvula is midline and the oropharynx is symmetric, I see no evidence of a phlegmon. NECK: Less than 1 cm bilateral anterior cervical adenopathy. No masses are present in the suprasternal notch. No supraclavicular adenopathy is present VOICE: Strong without hoarseness or dysphonia. CARDIOVASCULAR : Regular Rate and Rhythm without murmurs or clicks, well perfused LUNGS: clear to auscultation, excellent air exchange, negative for stridor or stertor, easy respirations without grunting/flaring/retracting. ABDOMEN : Abdomen is soft, nontender, without organomegaly or masses. No guarding or rebound. Bowel sounds are intact in all 4 quadrants. EXTREMITIES: No clubbing, cyanosis, or edema. NEUROLOGICAL : Muscle tone normal and Normal age appropriate gait SKIN : normal color, no jaundice or rash and Normal skin turgor Impression: (J02.9) Exudative pharyngitis (primary encounter diagnosis) Plan: Office Visit on 03/11/22 - prednisoLONE sodium phosphate (ORAPRED) 15 mg/5 mL (3 mg/mL) oral liquid Liver profile and Monospot test were ordered at the [place] [facility] [place] ( father works there ) Education given. Course of illness/condition and rationale for treatment and further investigation discussed. I spent a total of 25 minutes on the date of the service which included preparing to see the patient, [id number] patient care, completing clinical documentation, obtaining and/or reviewing separately obtained history, performing a medically appropriate examination, counseling and educating the patient/family/caregiver and ordering medications, tests, or procedures. Follow-up pending labs Roxanne Kellogg MD [facility] Department of Pediatrics, [facility] Referring Provider: SELF [200] Allergies As of Date: 03/11/2022 Noted Allergy Reaction PEANUTS 08/07/2005 Date Reviewed: 03/11/2022 Reviewed by: Patricia Streeter Ma - Fully Assessed Reason for Visit: Follow Up [171] Cmt: ST - pain has not improved - was not swabbed for strep Primary Visit Diagnosis:Exudative pharyngitis [J02.9] Order(s):prednisoLONE sodium phosphate (ORAPRED) 15 mg/5 mL (3 mg/mL) oral liquidTake 15 mL by mouth once daily for 5 days.Disp: 75 mLRfl: 0 Prescriptions as of 03/11/2022 - prednisoLONE sodium phosphate (ORAPRED) 15 mg/5 mL (3 mg/mL) oral liquid Take 15 mL by mouth once daily for 5 days. - EPINEPHrine (EPIPEN) 0.3 mg/0.3 mL auto-injector Inject to the anterior thigh as directed by the allergy action plan. If used must seek emergent medical care. May repeat a second dose in 5 minutes awaiting emergency care. Dispense 2 twin packs with trainers. - EPINEPHrine (AUVI-Q) 0.3 mg/0.3 mL auto-injector Inject to the anterior thigh as directed by the allergy action plan. If used must seek emergent medical care. May repeat a second dose in 5 minutes awaiting (more content not included)... Normal [facility] CNPNon 03-11-2022 CNPN Telephone (PEDSWS) FAIZAN PASTOR ([id number]) 1 M Date Time Provider Department 03/11/22 ROXANNE KELLOGG During your visit today, we recorded the following information about you: Roxanne Kellogg MD 03/11/2022 3:21 PM Signed Patient was seen for exudative pharyngitis this morning Laboratory assessment was completed at the local [facility] [place] test: Negative AST: 167 ALT: 518 Total bili: 1.6 Strongly suspect the patient has mono despite the negative test as he has a mild hepatitis by laboratory assessment Continue the Orapred as prescribed today Discontinue the Augmentin Phone follow-up tomorrow This was directly communicated to the patient at 3 PM today Roxanne Kellogg MD Allergies As of Date: 03/11/2022 Noted Allergy Reaction PEANUTS 08/07/2005 Date Reviewed: 03/11/2022 Reviewed by: Patricia Streeter Ma - Fully Assessed Reason for Visit: Results, Lab [1201] Prescriptions as of 03/11/2022 - prednisoLONE sodium phosphate (ORAPRED) 15 mg/5 mL (3 mg/mL) oral liquid Take 15 mL by mouth once daily for 5 days. - EPINEPHrine (EPIPEN) 0.3 mg/0.3 mL auto-injector Inject to the anterior thigh as directed by the allergy action plan. If used must seek emergent medical care. May repeat a second dose in 5 minutes awaiting emergency care. Dispense 2 twin packs with trainers. - EPINEPHrine (AUVI-Q) 0.3 mg/0.3 mL auto-injector Inject to the anterior thigh as directed by the allergy action plan. If used must seek emergent medical care. May repeat a second dose in 5 minutes awaiting emergency care. Dispense 2 twin packs with trainers. Problem List As Of Date 03/11/2022 Noted Resolved Allergy to peanuts [Z91.010] 09/16/2014 Spermatocele of epididymis [N43.40] 09/21/2015 Left varicocele [I86.1] 09/02/2016 Encounter Status:Closed by ROXANNE KELLOGG on 03/11/22 Normal [facility] Direct bilirubinon Bilirubin.direct [Mass/Vol] 0.45 mg/dL 0.00-0.30 [facility] Work Phone: Laboratory - Chemistry and C hemistry - challengeon 03-11-2022 ALP [Catalytic activity/Vol] 194 U/L 45-117 [facility] Work Phone: ALT [Catalytic activity/Vol] 518 U/L 16-61 [facility] Work Phone: Globulin (S) [Mass/Vol] 3.2 g/dL 2.2-4.2 [facility] Work Phone: Serum heterophile antibody d etectionon 03-11-2022 Heterophile Ab Ql (S) Negative Negative [facility] Work Phone: Serum or plasma albumin abhishek urement (mass/volume)on 03-11-2022 Albumin [Mass/Vol] 4.0 g/dL 3.2-5.0 [facility] Work Phone: Thin prep Papanicolaou smear with manual screeningon 03-11-2022 Thin prep Papanicolaou smear with manual screening 167 U/L 15-37 [facility] Work Phone: Office Visit: UC: R ankle in juryon 07-17-2017 Documentation of current medications (procedure) Done Invalid Interpretation Code [facility] Work Phone: Documentation of current medications (procedure) T Invalid Interpretation Code [facility] Work Phone: Fall risk assessment No Invalid Interpretation Code [facility] Work Phone: Tobacco use CPHS Never smoker Invalid Interpretation Code [facility] Work Phone: Vital Signs Date Time Vital Sign Value Performing Clinician Facility 06-19-2025 09:31-0400 Body height 180.[address] Soledad Foote MD Work Phone: [facility] 06-19-2025 09:31-0400 Body mass index (BMI) [Ratio] 25.2 kg/m2 Dr. Soledad Foote MD Work Phone: [facility] 06-19-2025 09:31-0400 Body temperature 98.9 [degF] Dr. Soledad Foote MD Work Phone: [facility] 06-19-2025 09:31-0400 Body weight 81.[address] Soledad Foote MD Work Phone: [facility] 06-19-2025 09:31-0400 Diastolic blood pressure 72 mm[Hg] Dr. Soledad Foote MD Work Phone: [facility] 06-19-2025 09:31-0400 Heart rate 70 /min Dr. Soledad Foote MD Work Phone: [facility] 06-19-2025 09:31-0400 Respiratory rate 16 /min Dr. Soledad Foote MD Work Phone: [facility] 06-19-2025 09:31-0400 SaO2% (BldA) [Mass fraction] 98 % Dr. Soledad Foote MD Work Phone: [facility] 06-19-2025 09:31-0400 Systolic blood pressure 181 mm[Hg] Dr. Soledad Foote MD Work Phone: [facility] 10-07-2022 09:13-0500 Body temperature 98.4 [degF] Delia Farris APRN.GUIDE TRAVEL Work Phone: [facility] 10-07-2022 09:13-0500 Body weight 80.17 kg Delia Farris APRN.GUIDE TRAVEL Work Phone: [facility] 10-07-2022 09:13-0500 Diastolic blood pressure 74 mm[Hg] Delia Farris LUNCH COUNTER MANAGER.GUIDE TRAVEL Work Phone: [facility] 10-07-2022 09:13-0500 Heart rate 84 /min Delia Farris LUNCH COUNTER MANAGER.GUIDE TRAVEL Work Phone: [facility] 10-07-2022 09:13-0500 Respiratory rate 12 /min Delia Farris LUNCH COUNTER MANAGER.GUIDE TRAVEL Work Phone: [facility] 10-07-2022 09:13-0500 Systolic blood pressure 130 mm[Hg] Delia Farris LUNCH COUNTER MANAGER.GUIDE TRAVEL Work Phone: [facility] 05-20-2022 15:08-0400 Body temperature 98.1 [degF] Delia Farris LUNCH COUNTER MANAGER.GUIDE TRAVEL Work Phone: [facility] 05-20-2022 15:08-0400 Body weight 79.61 kg Delia Farris LUNCH COUNTER MANAGER.GUIDE TRAVEL Work Phone: [facility] 05-20-2022 15:08-0400 Diastolic blood pressure 78 mm[Hg] Delia Farris LUNCH COUNTER MANAGER.GUIDE TRAVEL Work Phone: [facility] 05-20-2022 15:08-0400 Heart rate 76 /min Delia Farris LUNCH COUNTER MANAGER.GUIDE TRAVEL Work Phone: [facility] 05-20-2022 15:08-0400 Respiratory rate 16 /min Delia Farris LUNCH COUNTER MANAGER.GUIDE TRAVEL Work Phone: [facility] 05-20-2022 15:08-0400 Systolic blood pressure 136 mm[Hg] Delia Farris LUNCH COUNTER MANAGER.GUIDE TRAVEL Work Phone: [facility] 05-13-2022 14:08-0400 Body temperature 97.9 [degF] Roxanne Kellogg MD Work Phone: [facility] 05-13-2022 14:08-0400 Body weight 80.56 kg Roxanne Kellogg MD Work Phone: [facility] 05-13-2022 14:08-0400 Heart rate 62 /min Roxanne Kellogg MD Work Phone: [facility] 05-13-2022 14:08-0400 Respiratory rate 14 /min Roxanne Kellogg MD Work Phone: [facility] 03-11-2022 11:08-0400 Body temperature 99.19 [degF] Roxanne Kellogg MD Work Phone: [facility] 03-11-2022 11:08-0400 Body weight 81.38 kg Roxanne Kellogg MD Work Phone: [facility] 03-11-2022 11:08-0400 Heart rate 72 /min Roxanne Kellogg MD Work Phone: [facility] 03-11-2022 11:08-0400 Respiratory rate 12 /min Roxanne Kellogg MD Work Phone: [facility] 03-09-2022 07:32-0400 Body height 180.[address] Roxanne Kellogg Work Phone: [facility] Work Phone: 03-09-2022 07:32-0400 Body mass index (BMI) [Ratio] 1.6 kg/m2 Dr. Roxanne Kellogg Work Phone: [facility] Work Phone: 03-09-2022 07:32-0400 Body temperature 98 [degF] Dr. Roxanne Kellogg Work Phone: [facility] Work Phone: 03-09-2022 07:32-0400 Body weight 5.[address] Roxanne Kellogg Work Phone: [facility] Work Phone: 03-09-2022 07:32-0400 Diastolic blood pressure 72 mm[Hg] Dr. Roxanne Kellogg Work Phone: [facility] Work Phone: 03-09-2022 07:32-0400 Heart rate 68 /min Dr. Roxanne Kellogg Work Phone: [facility] Work Phone: 03-09-2022 07:32-0400 Respiratory rate 16 /min Dr. Roxanne Kellogg Work Phone: [facility] Work Phone: 03-09-2022 07:32-0400 SaO2% (BldA) [Mass fraction] 99 % Dr. Roxanne Kellogg Work Phone: [facility] Work Phone: 03-09-2022 07:32-0400 Systolic blood pressure 124 mm[Hg] Dr. Roxanne Kellogg Work Phone: [facility] Work Phone: 07-17-2017 12:40-0400 BMI (Body Mass Index) 22.54 kg/m2 Mariijocelyne Gross LPN [facility] Work Phone: 07-17-2017 12:40-0400 Body Temperature 99.1 [degF] Mariijocelyne Gross LPN [facility] Work Phone: 07-17-2017 12:40-0400 BP Diastolic 74 mm[Hg] [facility] Work Phone: 07-17-2017 12:40-0400 BP Systolic 118 mm[Hg] Marii Renato BETHEAN [facility] Work Phone: 07-17-2017 12:40-0400 Height 180.34 cm Mariieriberto Gross LPN [facility] Work Phone: 07-17-2017 12:40-0400 Pulse (Heart Rate) 62 /min Mariijocelyne Gross LPN [facility] Work Phone: 07-17-2017 12:40-0400 Respiratory Rate 15 /min Mariijocelyne Gross LPN [facility] Work Phone: 07-17-2017 12:40-0400 Weight 73.3 kg Mariieriberto Gross LPN [facility] Work Phone: Encounters Encounter Date Encounter Type Care Provider Facility Start: 06-19-2025 Encounter for genera l adult medical examination without abnormal findings Sloedad Foote [facility] Start: 06-19-2025 End: 06-19-[address] Soledad Foote MD [facility] Work Phone: Start: 06-19-2025 End: 06-19-[address] Soledad Foote MD [facility] Start: 06-19-2025 End: 06-19-[address] Soledad Foote MD Work Phone: [facility] Start: 09-26-2024 End: 09-26-2024 ambulatory Pramod Salazar Facility:[facility] Start: 09-20-2024 End: 09-20-[facility] Start: 07-05-2024 End: 07-05-2024 ambulatory [facility] Facility:[facility] Start: 07-05-2024 End: 07-05-2024 [facility] Start: 06-22-2024 End: 06-22-2024 Emergency department patient visit [facility] Facility:[facility] Start: 06-21-[address] Lux Foote MD Work Phone: [facility] Start: 06-21-2024 End: 06-21-2024 ambulatory Replaced By [facility] Facility:[facility] Start: 06-21-2024 End: 06-21-2024 ambulatory Soledad Foote Facility:[facility] Start: 10-07-2022 End: 10-07-2022 ambulatory DELIA FARRIS Facility:[facility] Start: 10-07-2022 End: 10-07-2022 Patient encounter procedure Delia Farris LUNCH COUNTER MANAGER.GUIDE TRAVEL Work Phone: [facility] Comment on above: Upper respiratory tr act infection, unspecified type (Primary Dx); Acute pharyngitis, unspecified etiology; Allergy to peanuts Start: 05-20-2022 End: 05-20-2022 ambulatory ROXANNE Gomez DONA ANA Facility:[facility] Start: 05-20-2022 End: 05-20-2022 Patient encounter procedure Delia Farris LUNCH COUNTER MANAGER.GUIDE TRAVEL Work Phone: [facility] Comment on above: Acute suppurative ot itis media of left ear without spontaneous rupture of tympanic membrane, recurrence not specified (Primary Dx) Start: 05-13-2022 End: 05-13-2022 ambulatory ROXANNE KELLOGG Facility:[facility] Start: 05-13-2022 End: 05-13-2022 Patient encounter procedure Roxanne Kellogg MD Work Phone: [facility] Comment on above: Acute bacterial conj unctivitis of both eyes (Primary Dx); Acute non-recurrent maxillary sinusitis; Bilateral impacted cerumen Start: 03-31-2022 End: 03-31-[address] Roxanne Kellogg Work Phone: [facility] Start: 03-14-2022 ambulatory Roxanne Kellogg MD Work Phone: [facility] Comment on above: [facility] Start: 03-11-2022 End: 03-11-2022 Patient encounter procedure Roxanne Kellogg MD Work Phone: [facility] Comment on above: Exudative pharyngiti s (Primary Dx) Start: 03-11-2022 Telephone encounter Roxanne espinosa MD Work Phone: [facility] Comment on above: Results, Lab Start: 03-11-2022 End: 03-12-2022 ambulatory ROXANNE KELLOGG Facility:[facility] Start: 03-11-2022 End: 03-11-[address] Roxanne Kellogg Work Phone: [facility] Start: 03-09-2022 End: 03-09-[address] Roxanne Kellogg Work Phone: [facility] Procedures Date Procedure Procedure Detail Performing Clinician Start: 10-07-2022 STREP A MOLECULAR (POC) Delia Farris APRN.GUIDE TRAVEL Work Phone: Start: 05-22-2019 Adult depression screening assessment Roxanne Kellogg MD Work Phone: Plan of Treatment Date Care Activity Detail Author Start: 05-19-2023 Urine microalbumin profile DTAP,TDAP,TD (7 - Td or Tdap) [facility] Start: 07-01-2022 Influenza vaccination INFLUENZA (#1) [facility] Start: 12-14-2021 COVID-19 VACCINE (4 - Booster for Pfizer series) COVID-19 VACCINE (4 - Booster for Pfizer series) [facility] Start: 10-31-2021 DEPRESSION ASSESSMENT DEPRESSION ASS ESSMENT [facility] Start: 05-22-2020 Adult depression screening assessment DEPRESSION SCREENING [facility] Start: 2018 HEPATITIS C SCREENING HEPATITIS C SC REENING [facility] Start: 2018 HIV SCREENING HIV SCREENING [facility] Start: 07-17-2017 End: 07-17-2017 Appointment Appointment [facility] Work Phone: Start: 2014 PEDS TO ADULT TRANSI TION ANNUAL ASSESSMENT PEDS TO ADULT TRANSITION ANNUAL ASSESSMENT [facility] Start: 2012 PEDS TO ADULT TRANSI TION INITIAL DISCUSSION PEDS TO ADULT TRANSITION INITIAL DISCUSSION [facility] Start: 2010 MENINGOCOCCAL B: Consider based on risk (1 of 2 - Risk Bexsero 2-dose series) MENINGOCOCCAL B: Consider based on risk (1 of 2 - Risk Bexsero 2-dose series) [facility] CBC W Auto Different ial panel - Blood [facility] Comprehensive metabo lic 2000 panel - Serum or Plasma [facility] Hemoglobin A1c/Hemoglobin.total in Blood [facility] Influenza virus A an d B RNA and SARS-CoV-2 (COVID-19) N gene panel - Respiratory specimen by SENTHIL with probe detection COVID WITH FLUA+B, ROUTINE Microbiology Routine Acute pharyngitis, unspecified etiology Ordered: 10/07/[address] [facility] Work Phone: Comment on above: Ordered: 10/07/2022 Lipid 1996 panel - S jessenia or Plasma [facility] Magnesium measurement [facility] Patient Education ACETAMINOPHEN% 20AND%20I BUPROFEN%20DOSING%20IN% 20CHILDREN [facility] Work Phone: Thyroid stimulating hormone measurement [facility] Vitamin D, 25-hydrox y measurement [facility] Immunizations Immunization Date Immunization Notes Care Provider Jeovany castillo 10-19-2021 COVID-19 vaccine, ag e 12+ yr ([email or web address] - PURPLE TOP) Roxanne Kellogg MD Work Phone: [facility] Work Phone: 08-18-2021 influenza, injectabl e, quadrivalent, contains preservative Roxanne Kellogg MD Work Phone: [facility] 10-17-2019 influenza, injectabl e, quadrivalent, preservative free Roxanne Kellogg MD Work Phone: [facility] Work Phone: 05-22-2019 Human Papillomavirus 9-valent vaccine Roxanne Kellogg MD Work Phone: [facility] 01-01-2019 Human Papillomavirus 9-valent vaccine Roxanne Kellogg MD Work Phone: [facility] Work Phone: 10-23-2018 Human Papillomavirus 9-valent vaccine Roxanne Kellogg MD Work Phone: [facility] Work Phone: 09-22-2018 influenza, injectabl e, quadrivalent, contains preservative Roxanne Kellogg MD Work Phone: [facility] Work Phone: 08-29-2017 influenza, injectabl e, quadrivalent, contains preservative Roxanne Kellogg MD Work Phone: [facility] 08-29-2017 meningococcal polysaccharide (groups A, C, Y and W-135) diphtheria toxoid conjugate vaccine (MCV4P) Roxanne Kellogg MD Work Phone: [facility] Work Phone: 09-02-2016 influenza, injectabl e, quadrivalent, preservative free Roxanne Kellogg MD Work Phone: [facility] 09-12-2015 influenza, injectabl e, quadrivalent, contains preservative Roxanne Kellogg MD Work Phone: [facility] 09-12-2015 influenza, seasonal, injectable Roxanne Kellogg MD Work Phone: [facility] 09-16-2014 influenza, injectabl e, quadrivalent, preservative free Roxanne Kellogg MD Work Phone: [facility] 05-19-2013 Meningococcal, MCV4, unspecified conjugate formulation(groups A, C, Y and W-135) Roxanne Kellogg MD Work Phone: [facility] 05-19-2013 tetanus toxoid, redu nicole diphtheria toxoid, and acellular pertussis vaccine, adsorbed Roxanne Kellogg MD Work Phone: [facility] 10-07-2012 influenza virus vacc ine, unspecified formulation Roxanne Kellogg MD Work Phone: [facility] 10-12-2010 influenza virus vacc ine, unspecified formulation Roxanne Kellogg MD Work Phone: [facility] 11-18-2009 novel influenza-H1N1 -09, preservative-free, injectable Roxanne Kellogg MD Work Phone: [facility] 10-20-2009 novel influenza-H1N1 -09, preservative-free, injectable Roxanne Kellogg MD Work Phone: [facility] 10-06-2009 influenza virus vacc ine, unspecified formulation Roxanne Kellogg MD Work Phone: [facility] Work Phone: 09-12-2008 influenza virus vacc ine, unspecified formulation Roxanne Kellogg MD Work Phone: [facility] Work Phone: 09-25-2007 influenza virus vacc ine, unspecified formulation Roxanne Kellogg MD Work Phone: [facility] 09-06-2006 influenza virus vacc ine, live, attenuated, for intranasal use Roxanne Kellogg MD Work Phone: [facility] Work Phone: 12-02-2005 diphtheria, tetanus toxoids and acellular pertussis vaccine Roxanne Kellogg MD Work Phone: [facility] Work Phone: 12-02-2005 measles, mumps and rubella virus vaccine Roxanne Kellogg MD Work Phone: [facility] Work Phone: 12-02-2005 poliovirus vaccine, inactivated Roxanne Kellogg MD Work Phone: [facility] Work Phone: 03-06-2002 diphtheria, tetanus toxoids and acellular pertussis vaccine Roxanne Kellogg MD Work Phone: [facility] Work Phone: 03-06-2002 haemophilus influenz ae type b vaccine, HbOC conjugate Roxanne Kellogg MD Work Phone: [facility] Work Phone: 01-25-2002 Chicken Pox (disease) Roxanne lopez MD Work Phone: [facility] Work Phone: 11-28-2001 measles, mumps and rubella virus vaccine Roxanne Kellogg MD Work Phone: [facility] Work Phone: 11-28-2001 varicella virus vaccine Roxanne Kellogg MD Work Phone: [facility] Work Phone: 08-25-2001 poliovirus vaccine, inactivated Roxanne Kellogg MD Work Phone: [facility] Work Phone: 05-26-2001 diphtheria, tetanus toxoids and acellular pertussis vaccine Roxanne Kellogg MD Work Phone: [facility] Work Phone: 05-26-2001 haemophilus influenz ae type b vaccine, HbOC conjugate Roxanne Kellogg MD Work Phone: [facility] Work Phone: 05-26-2001 hepatitis B vaccine, pediatric or pediatric/adolescent dosage Roxanne Kellogg MD Work Phone: [facility] Work Phone: 05-26-2001 pneumococcal conjuga te vaccine, 7 valent Roxanne Kellogg MD Work Phone: [facility] Work Phone: 03-29-2001 diphtheria, tetanus toxoids and acellular pertussis vaccine Roxanne Kellogg MD Work Phone: [facility] Work Phone: 03-29-2001 haemophilus influenz ae type b vaccine, HbOC conjugate Roxanne Kellogg MD Work Phone: [facility] Work Phone: 03-29-2001 pneumococcal conjuga te vaccine, 7 valent Roxanne Kellogg MD Work Phone: [facility] Work Phone: 03-29-2001 poliovirus vaccine, inactivated Roxanne Kellogg MD Work Phone: [facility] Work Phone: 01-24-2001 diphtheria, tetanus toxoids and acellular pertussis vaccine Roxanne Kellogg MD Work Phone: [facility] Work Phone: 01-24-2001 haemophilus influenz ae type b vaccine, HbOC conjugate Roxanne Kellogg MD Work Phone: [facility] Work Phone: 01-24-2001 pneumococcal conjuga te vaccine, 7 valent Roxanne Kellogg MD Work Phone: [facility] Work Phone: 01-24-2001 poliovirus vaccine, inactivated Roxanne Kellogg MD Work Phone: [facility] Work Phone: 2000 hepatitis B vaccine, pediatric or pediatric/adolescent dosage Roxanne Kellogg MD Work Phone: [facility] Work Phone: 2000 hepatitis B vaccine, pediatric or pediatric/adolescent dosage Roxanne Kellogg MD Work Phone: [facility] Work Phone: Payers Date Payer Category Payer Self-pay [id number] [facility] [place] [id number] 2019 Unknown MMO MMO [employer] [id number] 2019-Present [address] [place] [address] PPO [id number] 2019 Unknown MMO MMO [employer] [id number] 2019-Present [address] [place] [address] PPO [id number] 2006 Unknown [id number] Unknown [id number] Unknown [id number] Unknown [id number] Unknown [id number] Unknown [id number] Unknown [id number] Unknown [id number] Unknown [id number] Social History Date Type Detail Facility Start: 12-29-2011 End: 06-22-2024 Tobacco smoking status NHIS Never smoked tobacco [facility] Start: 03-11-2022 End: 05-20-2022 Alcohol intake Current non-drinker of alcohol (finding) [facility] Start: 2000 Sex Assigned At Not on file [facility] Start: 2000 Sex Assigned At Male [facility] Start: 05-03-2022 End: 05-20-2022 Exposure to SARS-CoV-2 (event) Not sure [facility] Start: 12-29-2011 Tobacco use and exposure Smokeless tobacco non-user [facility] Work Phone: Clinical Notes 03-11-2022 to 06-19-2025 Note Date & Type Note Facility 06-19-2025 Progress note [facility] 06-19-2025 Progress note Note Date/Time June 19, 2025 10:09am [facility] [address] [place] [address] OFFICE VISIT Date of Service: 06/19/25 MR#: [id number] Acct: [id number] Name: FAIZAN PASTOR Rep # : [id number] : 2000 Provider: Dr. Jessica Foote MD Age/Sex: 24/M Location: [facility] Status: Signed Intake Vital Signs 07/05/24 09:24 06/19/25 09:31 Height 5 ft 11 in 5 ft 11 in Weight: 182 lb 2 oz 180 lb 8 oz BMI 25.4 25.2 BP 162/77 H 181/72 H Blood Pressure Location Lt brachial Rt brachial Position Sitting Sitting Respiration 16 16 Pulse 62 70 Pulse Source Monitor Monitor Temp 98.6 F 98.9 F Temp Source Temporal Temporal Pulse Oximetry (%) 98 98 Oxygen Delivery Method room air room air Intake Visit Reasons: Cough, Congestion Chief Complaint: Cough, congestion Perinatology Physician Required: No Accompanied by: Self Is patient in pain?: Yes (Sinus pressure) Pain scale (1-10): 1 Allergies peanut Allergy (Verified 06/19/25 09:26) Anaphylaxis Medications ?Medication ?Instructions ?Recorded ?Confirmed ?Type epinephrine 0.3 mg/0.3 mL 0.3 mg (0.3 mL) IM Q5-15M CT N 01/21/25 06/19/25 Rx injection, auto-injector anaphylaxis #2 ea azithromycin 250 mg tablet See Rx Instructions PO .COM PLEX #6 06/19/25 06/19/25 Rx (Zithromax) tabs PFSH Medical History (Updated 06/19/25 @ 10:[address] Soledad Foote MD) Sinus infection Impacted cerumen, right ear Impacted cerumen of left ear Elevated serum creatinine Encounter for wellness examination in adult Nausea Lightheadedness Allergic conjunctivitis Allergic rhinitis Surgical History History of appendectomy Family History Grandmother Arthritis Hypertension Pulmonary embolism 75 Grandfather Cancer MATERNAL-PANCRATIC , 76 PATERNAL-BLADDER, 75 Mother Thyroid disorder THYROID CANCER Social History adopted: No household members: other details: parents housing: house number of children: 0 current occupational status: unemployed current occupational exposures/hazards: No pets and animals: No leisure activities: sports and exercise history of recent travel: No sexually active: No Smoking Status: Never smoker alcohol intake: never substance use type: does not use well-balanced diet: daily or most days caffeine: No eating out: 1-3 times/week during the past year weight has: remained stable what type of physical activity do you participate in: running and weight training troy/orthodox: Uatsdin seatbelt use: always do you feel safe at home: Yes HPI HPI Chief Complaint: Cough, congestion Details: FAIZAN PASTOR, is a 24 M who presents to the office today for Annnual wellness visit, but also has 1 week of upper respiratory symptoms to include head congestions, yellow green sinus drainage, "clogged ears." No coughing. Has unfortunately been using pseudophed. He too some this morning. He has a history of elevated BP, which we evaluated extensively last year. Had mildly elevated creatinine, and because of that, and elevated BP, was referred to nephrology. We did lab workup including hormones, aldosterone, renin levels, as well as metanephrines. All of this was generally speaking unremarkable. Nephrology didnot have any specific concerns per se. His blood pressures did come back down and he monitored for a while but over the last approximately a year, he has not been regularly monitoring. Has a blood pressure cuff at home. 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 He is working out at the gym a couple of days a week. He is not experiencing any episode chest pain, chest tightness, shortness of breath wheeze cough or congestion. No fever or chills. No nausea or vomiting. Appetite has been good. Bowel movements have been regular. Continues to carry EpiPen due to history of peanut allergy. Review of systems per chart. Physical exam. Vital signs on chart. PERRLA. Sclera are clear. Right TM occluded by cerumen. Left mild ceruminosis. Perhaps a little fluid behind the left eardrum but the eardrum is not erythematous. Canal is unremarkable. Posterior pharynx is unremarkable. Good dentition. No cervical or supraclavicular lymph nodes enlarged or tender. No clear thyromegaly. No thyroid nodules readily palpable. Lungs are without wheeze, rhonchi, rales. Steffanie/A changes are heard. Heart is regular. Not tachycardic. No clear murmur, rub, or gallop is identified. The abdomen is soft. Bowel sounds are present. Nontender nondistended abdomen. No clear palpable masses in the abdomen. No significant leg edema. Cranial nerve examination 2 through 12 are grossly unremarkable nonlateralizing. Deep tendon reflexes are 2/4 and symmetric at thebicep, tricep, Achilles, patella. No ankle clonus. No obvious rashes. No obvious significant skin lesions are identified. ROS Const Constitutional: Positive for headache(s); No body ache, chills, excessive sweating, fatigue, fever(s), frequent falls, snoring, weakness or change in appetite Eyes Eyes: No blurry vision, change in vision, eye pain or Light sensitivity ENT ENT: Positive for ear pressure, sinus pressure and headache(s); No abnormal hearing, ear or mastoid pain, tinnitus, nasal congestion, neck pain or sore throat Resp Respiratory: Positive for cough; No shortness of breath, snoring or wheezing Cardio Cardiology: No chest pain at rest, chest pain with exertion, excessive sweating,dyspnea on exertion, lightheadedness, orthopnea or palpitations Gastro GI: No abdominal pain, change in bowel habits, constipation, cramping, diarrhea,nausea/dyspepsia or vomiting Genitourinary Male: No burning urination, painful urination, urinary incontinence or urinary frequency Musc Musculoskeletal: No abnormal gait, joint pain, back pain, limited range of motion, muscle weakness, neck pain or numbness Skin Skin: No dry skin, redness, lesions, itchy eyes, rash or wounds Neuro Neurology: Positive for headache(s); No abnormal gait, abnormal hearing, weakness, frequent falls, memory loss or numbness Psych Psychiatric: No anxiety, No change in appetite, No depression, No memory loss and No Thoughts of harming yourself/Others Endo Endocrine: No cold intolerance, excessive sweating, fatigue, flushing, heat intolerance, increased thirst/drinking or increased hunger Aller/Imm Allergy/Immunologic: No itchy eyes, seasonal allergy symptoms, hives or wheezing Sukumar/Lymp Hematologic/Lymphatic: No easy bleeding or easy bruising Coding Level of Care Code Off vis,est,prev 18-39yrs Diagnoses Encounter for wellness examination in adult Z00.00 Elevated blood pressure reading R03.0 Impacted cerumen, right ear H61.21 Sinus infection J32.9 Time Spent (min) 30 Assessment and Plan Assessment and Plan (1) Encounter for wellness examination in adult: Status: Acute (2) Elevated blood pressure reading: Status: Inactive (3) Impacted cerumen, right ear: Status: Acute (4) Sinus infection: Status: Acute Orders: Orders Thyroid Stim Hormone (TSH) Today R03.0 - Elevated blood-pressure reading, without diagnosis of hypertension, R79.89 - Other specified abnormal findings ofblood chemistry, Z00.00 - Encounter for general adult medical examination without abnormal findings Comprehensive Metabolic Profil Today R03.0 - Elevated blood-pressure reading, without diagnosis of hypertension, R79.89 - Other specified abnormal findings ofblood chemistry, Z00.00 - Encounter for general adult medical examination without abnormal findings CBC W/Diff, Automated Today R03.0 - Elevated blood-pressure reading, without diagnosis of hypertension, R79.89 - Other specified abnormal findings of blood chemistry, Z00.00 - Encounter for general adult medical examination without abnormal findings Lipid Profile Today R03.0 - Elevated blood-pressure reading, without diagnosis of hypertension, R79.89 - Other specified abnormal findings of blood chemistry, Z00.00 - Encounter for general adult medical examination without abnormal findings, Z13.220 - Encounter for screening for lipoid disorders Hemoglobin A1c Today R03.0 - Elevated blood-pressure reading, without diagnosisof hypertension, R73.9 - Hyperglycemia, unspecified, R79.89 - Other specified abnormal findings of blood chemistry, Z00.00 - Encounter for general adult medical examination without abnormal findings Magnesium Today R03.0 - Elevated blood-pressure reading, without diagnosis of hypertension, R79.89 - Other specified abnormal findings of blood chemistry, Z00.00 - Encounter for general adult medical examination without abnormal findings Vitamin D,25 Hydroxy Today E55.9 - Vitamin D deficiency, unspecified, R03.0 - Elevated blood-pressure reading, without diagnosis of hypertension, R79.89 - Other specified abnormal findings of blood chemistry, Z00.00 - Encounter for general adult medical examination without abnormal findings Cerumen Removal BMS Today H61.22 - Impacted cerumen, left ear Medications: New azithromycin (Zithromax) For 250 mg dose pack: take 500 mg today (day 1), then 250 mg for 4 days (days 2-5) PO 6 tabs 0RF Plan Details Additional Comments: Patient presented today for annual wellness checkup. He also has what appears to be acute sinus infection. Z-Myles. He has not taken that in the past to his recollection. It did show his possible cross-reactivity due to soy. The patient states he has never had any problem with soy and consumes it regularly. Will proceed with Z-Myles. Take as directed. He will stop using Sudafed. Use Mucinex plain 600 mg p.o. twice daily for nasal congestion. Cerumen impaction removal today with irrigation per nursing. The labs for wellness purposes will be obtained as ordered. He will monitor blood pressures over the next couple ofweeks and drop those off. No other specific changes. 30-minute visit. 06/19/25 1009 <Electronically signed by Soledad may MD> Date _ Soledad Foote MD Cosigner Signature: Date (if applicable) CC: ~ [facility] Work Phone: [phone] 227-877312-08-2022 Influenza virus A and B RNA and SARS-CoV-2 (COVID-19) N gene panel SENTHIL+probe (Resp)COVID 19 RESULT: SARS-CoV-2 (Agent of COVID-19) Not Detected by RT-PCR or equivalent method. carlos alberto [id number]_[employer] (ALLAN)_EUA This test was developed and its performance characteristics determined by [facility] [place]. This test has been authorized by FDA under an Emergency Use Authorization (EUA). This test has been validated in accordance with the FDA's Guidance Document Policy for DiagnosticsTesting in Laboratories Certified to Perform High Complexity Testing under CLIA prior to Emergency use Authorization for Coronavirus Disease 2019 during the Public Health Emergency" issued on December 29, 2019. Test performed by [facility], [facility] [place], [facility] [place] [address]. INFLUENZA A PCR: Negative for Influenza A by RT-PCR INFLUENZA B PCR: Negative for Influenza B by [facility] on above: Performed By: #### [id number] #### [facility] CLIA [id number] [address] [place] [address] STATES OF [id number] NoteHNO ID: [id number] Author: Delia Farris APRN.GUIDE TRAVEL Service: ? Author Type: Nurse Practitioner Type: Progress Notes Filed: 10/07/2022 9:38 AM Note Text: PEDIATRIC SICK VISIT SERVICE DATE: 10/07/2022 SUBJECTIVE: Faizan Pastor is a 21 year old presenting to clinic for evaluation of sore throat, cough, runny nose, and nasal congestion. He also needs an epi-pen refill. Patient presents with: Sore Throat: Onset on 10/03, no known fever. Cough: Onset on 10/04, non productive Rhinitis: Onset on 10/04 Nasal Congestion: Onset on 10/04 Rx Refills: Needs refill of EPI PENS History was obtained from: patient Current symptoms: FEVER: not present at this time NASAL CONGESTION: for 4 day(s), along with rhinitis EAR SYMPTOMS: not present at this time COUGH: present for 4 day(s), dry, no phlegm SORE THROAT: for 5 day(s) HEADACHE: not present at this time VOMITING: not present at this time NAUSEA: not present at this time DIARRHEA: not present at this time ABDOMINAL PAIN: not present at this time RASH: not present at this time GENERAL: Decreased activity Oral fluid intake: no significant change Solid food intake: decreased Sick contacts: No known sick contacts HISTORY: ACTIVE PROBLEM LIST Allergy to Peanuts Spermatocele of Epididymis Left Varicocele PAST MEDICAL HISTORY Diagnosis Date Epididymal cyst 06/06/2015 + mild right hydrocele PMH - PAST MEDICAL HISTORY OF 01/06/02 distal fibula fracture PMH - PAST MEDICAL HISTORY OF 12/02/2005 normal color vision PAST SURGICAL HISTORY Procedure Laterality Date APPENDECTOMY 08/2008 Allergies: ALLERGIES Allergen Reactions Peanuts Medications: EPINEPHrine (EPIPEN) 0.3 mg/0.3 mL auto-injector Inject to the anterior thigh as directed by the allergy action plan. If used must seek emergent medical care. May repeat a second dose in 5 minutes awaiting emergency care. Dispense 2 twin packs with trainers. OBJECTIVE: BP 130/74 Pulse 84 Temp 36.9 ?C (98.4 ?F) (Temporal Artery) Resp 12 Wt 80.2 kg (176 lb 12 oz) BMI 25.53 kg/m? General: well appearing, alert and active in no apparent distress Eyes: conjunctiva clear, PERRL Ears: TMs translucent bilaterally, normal landmarks noted Nose: clear rhinorrhea/nasal congestion OP: tonsils erythematous 2+, scant exudate on right tonsil, no lesions Neck: supple, no adenopathy Lungs: clear to auscultation bilaterally, good air exchange, no wheezes or crackles CVS: Normal rate, regular rhythm, no murmur Skin: No rashes, lesions or skin changes ASSESSMENT/PLAN: Encounter Diagnosis ICD-10-CM 1. Upper respiratory tract infection, unspecified type J06.9 2. Acute pharyngitis, unspecified etiology J02.9 STREP A MOLECULAR (POC) COVID WITH FLUA+B, ROUTINE 3. Allergy to peanuts Z91.010 EPINEPHrine (EPIPEN) 0.3 mg/0.3 mL auto-injector - Molecular strep test negative in office --Covid/Flu test done in office and results pending. Isolate pending test results. --Encourage plenty of fluids --May take honey or use salt water gargles as needed for throat pain --Use a humidifier or steam from the shower and nasal saline as needed to help with congestion --Give acetaminophen (Tylenol) or ibuprofen (Motrin) as needed for fever or pain --Return to clinic for persistent or worsening symptoms, or for other concerns This patient encounter involved the screening or treatment of novel coronavirus infection (COVID-19). SIGNATURE: Delia Farris APRN.GUIDE TRAVEL PATIENT NAME: Faizan Pastor DATE: October 07, 2022 TIME: 8:18 [facility]12-08-2022 History of Present illness Narrative* Delia Farris APRN.GUIDE TRAVEL - 10/07/2022 9:15 AM EST PEDIATRIC SICK VISIT SERVICE DATE: 10/07/2022 SUBJECTIVE: Faizan Pastor is a 21 year old presenting to clinic for evaluation of sore throat, cough, runny nose, and nasal congestion. He also needs an epi-pen refill. Patient presents with: Sore Throat: Onset on 10/03, no known fever. Cough: Onset on 10/04, non productive Rhinitis: Onset on 10/04 Nasal Congestion: Onset on 10/04 Rx Refills: Needs refill of EPI PENS History was obtained from: patient Current symptoms: FEVER: not present at this time NASAL CONGESTION: for 4 day(s), along with rhinitis EAR SYMPTOMS: not present at this time COUGH: present for 4 day(s), dry, no phlegm SORE THROAT: for 5 day(s) HEADACHE: not present at this time VOMITING: not present at this time NAUSEA: not present at this time DIARRHEA: not present at this time ABDOMINAL PAIN: not present at this time RASH: not present at this time GENERAL: Decreased activity Oral fluid intake: no significant change Solid food intake: decreased Sick contacts: No known sick contacts HISTORY: ACTIVE PROBLEM LIST Allergy to Peanuts Spermatocele of Epididymis Left Varicocele PAST MEDICAL HISTORY Diagnosis Date Epididymal cyst 06/06/2015 + mild right hydrocele PMH - PAST MEDICAL HISTORY OF 01/06/02 distal fibula fracture PMH - PAST MEDICAL HISTORY OF 12/02/2005 normal color vision PAST SURGICAL HISTORY Procedure Laterality Date APPENDECTOMY 08/2008 Allergies: ALLERGIES Allergen Reactions Peanuts Medications: EPINEPHrine (EPIPEN) 0.3 mg/0.3 mL auto-injector Inject to the anterior thigh as directed by the allergy action plan. If used must seek emergent medical care. May repeat a second dose in 5 minutes awaiting emergency care. Dispense 2 twin packs with trainers. OBJECTIVE: BP 130/74 Pulse 84 Temp 36.9 C (98.4 F) (Temporal Artery) Resp 12 Wt 80.2 kg (176 lb 12 oz) BMI 25.53 kg/m General: well appearing, alert and active in no apparent distress Eyes: conjunctiva clear, PERRL Ears: TMs translucent bilaterally, normal landmarks noted Nose: clear rhinorrhea/nasal congestion OP: tonsils erythematous 2+, scant exudate on right tonsil, no lesions Neck: supple, no adenopathy Lungs: clear to auscultation bilaterally, good air exchange, no wheezes or crackles CVS: Normal rate, regular rhythm, no murmur Skin: No rashes, lesions or skin changes ASSESSMENT/PLAN: Encounter Diagnosis ICD-10-CM 1. Upper respiratory tract infection, unspecified type J06.9 2. Acute pharyngitis, unspecified etiology J02.9 STREP A MOLECULAR (POC) COVID WITH FLUA+B, ROUTINE 3. Allergy to peanuts Z91.010 EPINEPHrine (EPIPEN) 0.3 mg/0.3 mL auto-injector - Molecular strep test negative in office --Covid/Flu test done in office and results pending. Isolate pending test results. --Encourage plenty of fluids --May take honey or use salt water gargles as needed for throat pain --Use a humidifier or steam from the shower and nasal saline as needed to help with congestion --Give acetaminophen (Tylenol) or ibuprofen (Motrin) as needed for fever or pain --Return to clinic for persistent or worsening symptoms, or for other concerns This patient encounter involved the screening or treatment of novel coronavirus infection (COVID-19). SIGNATURE: Delia Farris APRN.CNP PATIENT NAME: Faizan Pastor DATE: October 07, 2022 TIME: 8:18 AM documented [facility]22 NoteHNO ID: [id number] Author: Delia Farris APRN.CNP Service: ? Author Type: Nurse Practitioner Type: Progress Notes Filed: 05/20/2022 3:42 PM Note Text: PEDIATRIC SICK VISIT SERVICE DATE: 05/20/2022 SUBJECTIVE: Faizan Pastor is a 21 year old male presenting to clinic for evaluation of left ear pain. Patient reports pain in left ear pain for a few days. No discharge from the ear. Tried ear drops but didn't help. Has not taken ibuprofen or acetaminophen. Patient was seen in clinic by PCP on 05/13/22 and treated with amoxicillin for sinusitis. He completed the 7 day course yesterday. He was also treated for conjunctivitis. All prior symptoms including conjunctivitis, rhinorrhea, and cough have resolved. No fever. History was obtained from: patient HISTORY: ACTIVE PROBLEM LIST Allergy to Peanuts Spermatocele of Epididymis Left Varicocele PAST MEDICAL HISTORY Diagnosis Date - Epididymal cyst 06/06/2015 + mild right hydrocele - PMH - PAST MEDICAL HISTORY OF 01/06/02 distal fibula fracture - PM - PAST MEDICAL HISTORY OF 12/02/2005 normal color vision PAST SURGICAL HISTORY Procedure Laterality Date - APPENDECTOMY 08/2008 Allergies: ALLERGIES Allergen Reactions - Peanuts Medications: EPINEPHrine (EPIPEN) 0.3 mg/0.3 mL auto-injector Inject to the anterior thigh as directed by the allergy action plan. If used must seek emergent medical care. May repeat a second dose in 5 minutes awaiting emergency care. Dispense 2 twin packs with trainers. EPINEPHrine (AUVI-Q) 0.3 mg/0.3 mL auto-injector Inject to the anterior thigh as directed by the allergy action plan. If used must seek emergent medical care. May repeat a second dose in 5 minutes awaiting emergency care. Dispense 2 twin packs with trainers. amoxicillin-clavulanic acid (AUGMENTIN) 875-125 mg per tablet Take 1 tablet by mouth twice daily for 7 days. REVIEW OF SYSTEMS: GENERAL: Negative for fevers HEENT: Positive for: left ear pain, no headache, no sore throat or rhinorrhea RESPIRATORY: Negative for cough, wheezing or respiratory distress GI: Negative for vomiting or diarrhea. SKIN: Negative for lesions, rash, and itching. OBJECTIVE: BP 136/78 Pulse 76 Temp 36.7 ?C (98.1 ?F) (Temporal Artery) Resp 16 Wt 79.6 kg (175 lb 8 oz) BMI 25.35 kg/m? General: well appearing, alert and active in no apparent distress Eyes: conjunctiva clear, PERRL Ears: right TM erythematous with bulging, left TM pearly singh with normal landmarks Nose: no erythema or exudate OP: moist without lesions, tonsils 2+, no exudates Neck: supple, no adenopathy Lungs: clear to auscultation bilaterally, good air exchange, no retractions, no wheezes CVS: Normal rate, regular rhythm, no murmur Skin: No rashes, lesions or skin changes ASSESSMENT/PLAN: Encounter Diagnosis ICD-10-CM 1. Acute suppurative otitis media of left ear without spontaneous rupture of tympanic membrane, recurrence not specified H66.002 amoxicillin-clavulanic acid (AUGMENTIN) 875-125 mg per tablet --Start antibiotics and be sure to complete entire 7 day course --Take acetaminophen (Tylenol) or ibuprofen (Motrin or Advil) PRN for pain or fever --Return to clinic if symptoms worsen or having fever after 48 hours of treatment SIGNATURE: Delia Farris APRN.CNP PATIENT NAME: Faizan Pastor DATE: May 20, 2022 TIME: 3:23 [facility]07-21-2022 Instructions* Patient Instructions* Delia Farris APRN.CNP - 05/20/2022 3:25 PM EDT 5 to Go!TM Healthy Kids Inside & Out 5 Eat FIVE fruits and veggies a day 4 Give and get FOUR compliments a day 3 Consume THREE calcium products a day 2 Limit media time to TWO hours a day 1 Get at least ONE hour of exercise a day 0 Consume ZERO sugar-sweetened drinks Go! Be healthy, inside and out! [email or web address] documented in this encounterKn[facility]07-21-2022 History of Present illness Narrative* Delia Fraris APRN.CNP - 05/20/2022 3:23 PM EDT PEDIATRIC SICK VISIT SERVICE DATE: 05/20/2022 SUBJECTIVE: Faizan Pastor is a 21 year old male presenting to clinic for evaluation of left ear pain. Patient reports pain in left ear pain for a few days. No discharge from the ear. Tried ear drops but didn't help. Has not taken ibuprofen or acetaminophen. Patient was seen in clinic by PCP on 05/13/22 and treated with amoxicillin for sinusitis. He completed the 7 day course yesterday. He was also treated for conjunctivitis. All prior symptoms including conjunctivitis, rhinorrhea, and cough have resolved. No fever. History was obtained from: patient HISTORY: ACTIVE PROBLEM LIST Allergy to Peanuts Spermatocele of Epididymis Left Varicocele PAST MEDICAL HISTORY Diagnosis Date Epididymal cyst 06/06/2015 + mild right hydrocele PMH - PAST MEDICAL HISTORY OF 01/06/02 distal fibula fracture PMH - PAST MEDICAL HISTORY OF 12/02/2005 normal color vision PAST SURGICAL HISTORY Procedure Laterality Date APPENDECTOMY 08/2008 Allergies: ALLERGIES Allergen Reactions Peanuts Medications: EPINEPHrine (EPIPEN) 0.3 mg/0.3 mL auto-injector Inject to the anterior thigh as directed by the allergy action plan. If used must seek emergent medical care. May repeat a second dose in 5 minutes awaiting emergency care. Dispense 2 twin packs with trainers. EPINEPHrine (AUVI-Q) 0.3 mg/0.3 mL auto-injector Inject to the anterior thigh as directed by the allergy action plan. If used must seek emergent medical care. May repeat a second dose in 5 minutes awaiting emergency care. Dispense 2 twin packs with trainers. amoxicillin-clavulanic acid (AUGMENTIN) 875-125 mg per tablet Take 1 tablet by mouth twice daily for 7 days. REVIEW OF SYSTEMS: GENERAL: Negative for fevers HEENT: Positive for: left ear pain, no headache, no sore throat or rhinorrhea RESPIRATORY: Negative for cough, wheezing or respiratory distress GI: Negative for vomiting or diarrhea. SKIN: Negative for lesions, rash, and itching. OBJECTIVE: BP 136/78 Pulse 76 Temp 36.7 C (98.1 F) (Temporal Artery) Resp 16 Wt 79.6 kg (175 lb 8 oz) BMI 25.35 kg/m General: well appearing, alert and active in no apparent distress Eyes: conjunctiva clear, PERRL Ears: right TM erythematous with bulging, left TM pearly singh with normal landmarks Nose: no erythema or exudate OP: moist without lesions, tonsils 2+, no exudates Neck: supple, no adenopathy Lungs: clear to auscultation bilaterally, good air exchange, no retractions, no wheezes CVS: Normal rate, regular rhythm, no murmur Skin: No rashes, lesions or skin changes ASSESSMENT/PLAN: Encounter Diagnosis ICD-10-CM 1. Acute suppurative otitis media of left ear without spontaneous rupture of tympanic membrane, recurrence not specified H66.002 amoxicillin-clavulanic acid (AUGMENTIN) 875-125 mg per tablet --Start antibiotics and be sure to complete entire 7 day course --Take acetaminophen (Tylenol) or ibuprofen (Motrin or Advil) PRN for pain or fever --Return to clinic if symptoms worsen or having fever after 48 hours of treatment SIGNATURE: Delia Farris APRN.CNP PATIENT NAME: Faizan Pastor DATE: May 20, 2022 TIME: 3:23 PM documented in this encounterKnox [facility] Hospital07-15-2022 NoteHNO ID: [id number] Author: Roxanne Kellogg MD Service: ? Author Type: Physician Type: Progress Notes Filed: 07/15/2022 11:54 AM Note Text: 21-year-old male presents the office today for concerns of bilateral eye pruritus and discharge present for 3 days. Additionally the patient has 10 days of rhinorrhea and cough. Patient was seen at a local urgent care where he was given a prescription for Visine-A Iliana and a Medrol pack. Patient states he has significant discomfort with the Visine-A. He has not started the Medrol pack. No fevers are present. He denies eye pruritus or sneezing. ACTIVE PROBLEM LIST Allergy to Peanuts Spermatocele of Epididymis Left Varicocele PAST MEDICAL HISTORY Diagnosis Date - Epididymal cyst 06/06/2015 + mild right hydrocele - PMH - PAST MEDICAL HISTORY OF 01/06/02 distal fibula fracture - PMH - PAST MEDICAL HISTORY OF 12/02/2005 normal color vision PAST SURGICAL HISTORY Procedure Laterality Date - APPENDECTOMY 08/2008 ALLERGIES Allergen Reactions - Peanuts 05/13/22 1408 Pulse: 62 Resp: 14 Temp: 36.6 ?C (97.9 ?F) TempSrc: Temporal Weight: 80.6 kg (177 lb 9.6 oz) GENERAL: alert and active in no apparent distress, nontoxic-appearing HEAD: Normocephalic, atraumatic EYES: EOM's intact, conjunctiva with bilateral injection and scant purulent discharge but no preseptal edema or erythema present EARS: On initial examination both external auditory canals were completely occluded with cerumen. Using a curette I was able to remove all the cerumen from the right external auditory canal. I was only able to remove partial amounts of cerumen from the left external auditory canal. The left external auditory canal was then irrigated thoroughly. Reexamination: External auditory canals are free of lesions bilaterally. Tympanic membranes are intact bilaterally without evidence of fluid in the middle ear space NOSE/SINUSES : Nares normal without discharge OROPHARYNX:moist mucous membranes, tonsils without hypertrophy and no exudates present NECK: Negative for anterior or posterior cervical adenopathy CARDIOVASCULAR : Regular Rate and Rhythm without murmurs or clicks, well perfused LUNGS: clear to auscultation, excellent air exchange, resonant to percussion, easy respirations without grunting/flaring/retracting. EXTREMITIES: No clubbing, cyanosis, or edema. NEUROLOGICAL : Muscle tone normal and Normal age appropriate gait SKIN : normal color, no jaundice or rash and Normal skin turgor UNIVERSAL PROTOCOL / SAFETY CHECKLIST Procedure to be Performed: Bilateral cerumen impaction removal Sign In: A Moment of CARE was completed. Personnel directly involved with the procedure wore the appropriate PPE (Personal Protective Equipment). Patient/Surrogate Stated/Verified: PATIENT VERIFIED(optional for EMERGENT procedures): Patient name, Date of , Relevant allergies and The intended procedure Time Out Communication: Intended patient and procedure match the source documents. Consent documented and matches the intended procedure. Sign Out: SIGN OUT (optional for EMERGENT procedures): No specimen collected. Roxanne Kellogg MD Impression: Acute bacterial conjunctivitis of both eyes (primary encounter diagnosis) Acute non-recurrent maxillary sinusitis Bilateral impacted cerumen Plan: Office Visit on 05/13/22 - amoxicillin (POLYMOX, AMOXIL) 500 mg capsule - ciprofloxacin HCl (CILOXAN) 0.3 % ophthalmic solution Education given. Course of illness/condition and rationale for treatment discussed. I spent a total of 25 minutes on the date of the service which included preparing to see the patient, [id number] patient care, completing clinical documentation, obtaining and/or reviewing separately obtained history, performing a medically appropriate examination, counseling and educating the patient/family/caregiver and ordering medications, tests, or procedures. Follow-up prn Roxanne Kellogg MD [facility] Department of [facility], [facility]07-15-2022 Instructions* Patient Instructions* Roxanne Kellogg MD - 05/14/2022 5:34 PM EDT documented in this encounterKnox [facility]07-15-2022 History of Present illness Narrative* Roxanne Kellogg MD - 05/14/2022 5:04 PM EDT 21-year-old male presents the office today for concerns of bilateral eye pruritus and discharge present for 3 days. Additionally the patient has 10 days of rhinorrhea and cough. Patient was seen at [facility] urgent care where he was given a prescription for Visine-A Iliana and a Medrol pack. Patientstates he has significant discomfort with the Visine-A. He has not started the Medrol pack. No fevers are present. He denies eye pruritus or sneezing. ACTIVE PROBLEM LIST Allergy to Peanuts Spermatocele of Epididymis Left Varicocele PAST MEDICAL HISTORY Diagnosis Date Epididymal cyst 06/06/2015 + mild right hydrocele PMH - PAST MEDICAL HISTORY OF 01/06/02 distal fibula fracture PMH - PAST MEDICAL HISTORY OF 12/02/2005 normal color vision PAST SURGICAL HISTORY Procedure Laterality Date APPENDECTOMY 08/2008 ALLERGIES Allergen Reactions Peanuts 05/13/22 1408 Pulse: 62 Resp: 14 Temp: 36.6 C (97.9 F) TempSrc: Temporal Weight: 80.6 kg (177 lb 9.6 oz) GENERAL: alert and active in no apparent distress, nontoxic-appearing HEAD: Normocephalic, atraumatic EYES: EOM's intact, conjunctiva with bilateral injection and scant purulent discharge but no preseptal edema or erythema present EARS: On initial examination both external auditory canals were completely occluded with cerumen. Using a curette I was able to remove all the cerumen from the left external auditory canal. I was only able to remove partial amounts of cerumen from the left external auditory canal. The left externalauditory canal was then irrigated thoroughly. Reexamination: External auditory canals are free of lesions bilaterally. Tympanic membranes are intact bilaterally without evidence of fluid in the middle ear space NOSE/SINUSES : Nares normal without discharge OROPHARYNX:moist mucous membranes, tonsils without hypertrophy and no exudates present NECK: Negative for anterior or posterior cervical adenopathy CARDIOVASCULAR : Regular Rate and Rhythm without murmurs or clicks, well perfused LUNGS: clear to auscultation, excellent air exchange, resonant to percussion, easy respirations without grunting/flaring/retracting. EXTREMITIES: No clubbing, cyanosis, or edema. NEUROLOGICAL : Muscle tone normal and Normal age appropriate gait SKIN : normal color, no jaundice or rash and Normal skin turgor UNIVERSAL PROTOCOL / SAFETY CHECKLIST Procedure to be Performed: Bilateral cerumen impaction removal Sign In: A Moment of CARE was completed. Personnel directly involved with the procedure wore the appropriate PPE (Personal Protective Equipment). Patient/Surrogate Stated/Verified: PATIENT VERIFIED(optional for EMERGENT procedures): Patient name, Date of , Relevant allergies and The intended procedure Time Out Communication: Intended patient and procedure match the source documents. Consent documented and matches the intended procedure. Sign Out: SIGN OUT (optional for EMERGENT procedures): No specimen collected. Roxanne Kellogg MD Impression: Acute bacterial conjunctivitis of both eyes (primary encounter diagnosis) Acute non-recurrent maxillary sinusitis Bilateral impacted cerumen Plan: Office Visit on 05/13/22 amoxicillin (POLYMOX, AMOXIL) 500 mg capsule ciprofloxacin HCl (CILOXAN) 0.3 % ophthalmic solution Education given. Course of illness/condition and rationale for treatment discussed. I spent a total of 25 minutes on the date of the service which included preparing to see the patient, [id number] patient care, completing clinical documentation, obtaining and/or reviewing separately obtained history, performing a medically appropriate examination, counseling and educating the pat ient/family/caregiver and ordering medications, tests, or procedures. Follow-up prn Roxanne Kellogg MD [facility] Department of Pediatrics, [facility] documented in this encounterKnox [facility] Hospital05-23-2022 Miscellaneous Notes* Telephone Encounter - Trixie Barnett RN - 03/22/2022 10:49 AM EDT order signed per [facility] and faxed Trixie Barnett RN * Telephone Encounter - Rola Smyth LPN - 03/20/2022 10:31 AM EDT Lab order was placed in your bin for signature. * Telephone Encounter - Roxanne Kellogg MD - 03/19/2022 3:29 PM EDT Order form needs completed for liver function profile at [facility]. Diagnosis elevated AST and ALT Roxanne Kellogg MD documented in this encounterKnox [facility] Hospital05-12-2022 Miscellaneous Notes* Telephone Encounter - Roxanne Kellogg MD - 03/11/2022 3:19 PM EDT Patient was seen for exudative pharyngitis this morning Laboratory assessment was completed at the [facility] secondary to insurance reasons Stephenson test: Negative AST: 167 ALT: 518 Total bili: 1.6 Strongly suspect the patient has mono despite the negative test as he has a mild hepatitis by laboratory assessment Continue the Orapred as prescribed today Discontinue the Augmentin Phone follow-up tomorrow This was directly communicated to the patient at 3 PM today Roxanne Kellogg MD documented in this encounterKnox Community Hospital05-12-2022 NoteHNO ID: [id number] Author: Roxanne Kellogg MD Service: ? Author Type: Physician Type: Progress Notes Filed: 03/11/2022 1:19 PM Note Text: 21-year-old male seen today for complaints of sore throat. He was seen at the [facility] urgent care on March 09, 2022 with a 5-day history of sore throat. Patient was prescribed Augmentin. Streptococcal assessment was not done. No other labs. Patient has been compliant with the Augmentin but complains of significant sore throat and pain. He denies any otalgia. He denies dysphagia, hoarseness, trismus or inability to control oral secretions. No vomiting or diarrhea are present. No history consistent with jaundice. No rashes are present. Not with active fevers. ACTIVE PROBLEM LIST Allergy to Peanuts Spermatocele of Epididymis Left Varicocele PAST MEDICAL HISTORY Diagnosis Date - Epididymal cyst 06/06/2015 + mild right hydrocele - PMH - PAST MEDICAL HISTORY OF 01/06/02 distal fibula fracture - PMH - PAST MEDICAL HISTORY OF 12/02/2005 normal color vision PAST SURGICAL HISTORY Procedure Laterality Date - APPENDECTOMY 08/2008 ALLERGIES Allergen Reactions - Peanuts 03/11/22 1108 Pulse: 72 Resp: 12 Temp: 37.3 ?C (99.2 ?F) TempSrc: Temporal Weight: 81.4 kg (179 lb 6.4 oz) GENERAL: alert and active in no apparent distress, nontoxic-appearing HEAD: Normocephalic, atraumatic EYES: EOM's intact, conjunctiva without injection or discharge, no scleral icterus is present EARS: External auditory canals are free of lesions bilaterally. Tympanic membranes are intact bilaterally without evidence of fluid in the middle ear space NOSE/SINUSES : Nares normal without discharge OROPHARYNX:moist mucous membranes, tonsils are 3+ with erythema and exudate, no palatal petechiae are noted, the uvula is midline and the oropharynx is symmetric, I see no evidence of a phlegmon. NECK: Less than 1 cm bilateral anterior cervical adenopathy. No masses are present in the suprasternal notch. No supraclavicular adenopathy is present VOICE: Strong without hoarseness or dysphonia. CARDIOVASCULAR : Regular Rate and Rhythm without murmurs or clicks, well perfused LUNGS: clear to auscultation, excellent air exchange, negative for stridor or stertor, easy respirations without grunting/flaring/retracting. ABDOMEN : Abdomen is soft, nontender, without organomegaly or masses. No guarding or rebound. Bowel sounds are intact in all 4 quadrants. EXTREMITIES: No clubbing, cyanosis, or edema. NEUROLOGICAL : Muscle tone normal and Normal age appropriate gait SKIN : normal color, no jaundice or rash and Normal skin turgor Impression: (J02.9) Exudative pharyngitis (primary encounter diagnosis) Plan: Office Visit on 03/11/22 - prednisoLONE sodium phosphate (ORAPRED) 15 mg/5 mL (3 mg/mL) oral liquid Liver profile and Monospot test were [place] [facility] [place] ( father works there ) Education given. Course of illness/condition and rationale for treatment and further investigation discussed. I spent a total of 25 minutes on the date of the service which included preparing to see the patient, [id number] patient care, completing clinical documentation, obtaining and/or reviewing separately obtained history, performing a medically appropriate examination, counseling and educating the patient/family/caregiver and ordering medications, tests, or procedures. Follow-up pending labs Roxanne Kellogg MD [facility], [facility] History of Present illness Narrative* Roxanne Kellogg MD - 03/11/2022 12:43 PM EDT 21-year-old male seen today for complaints of sore throat. He [facility] on March 09, 2022 with a 5-day history of sore throat. Patient was prescribed Augmentin. Streptococcal assessment was not done. No other labs. Patient has been compliant with the Augmentin but complains of significant sore throat and pain. He denies any otalgia. He denies dysphagia, hoarseness, trismus or inability to control oral secretions. No vomiting or diarrhea are present. No history consistent with jaundice. No rashes are present. Not with active fevers. ACTIVE PROBLEM LIST Allergy to Peanuts Spermatocele of Epididymis Left Varicocele PAST MEDICAL HISTORY Diagnosis Date Epididymal cyst 06/06/2015 + mild right hydrocele PMH - PAST MEDICAL HISTORY OF 01/06/02 distal fibula fracture PMH - PAST MEDICAL HISTORY OF 12/02/2005 normal color vision PAST SURGICAL HISTORY Procedure Laterality Date APPENDECTOMY 08/2008 ALLERGIES Allergen Reactions Peanuts 03/11/22 1108 Pulse: 72 Resp: 12 Temp: 37.3 C (99.2 F) TempSrc: Temporal Weight: 81.4 kg (179 lb 6.4 oz) GENERAL: alert and active in no apparent distress, nontoxic-appearing HEAD: Normocephalic, atraumatic EYES: EOM's intact, conjunctiva without injection or discharge, no scleral icterus is present EARS: External auditory canals are free of lesions bilaterally. Tympanic membranes are intact bilaterally without evidence of fluid in the middle ear space NOSE/SINUSES : Nares normal without discharge OROPHARYNX:moist mucous membranes, tonsils are 3+ with erythema and exudate, no palatal petechiae are noted, the uvula is midline and the oropharynx is symmetric, I see no evidence of a phlegmon. NECK: Less than 1 cm bilateral anterior cervical adenopathy. No masses are present in the suprasternal notch. No supraclavicular adenopathy is present VOICE: Strong without hoarseness or dysphonia. CARDIOVASCULAR : Regular Rate and Rhythm without murmurs or clicks, well perfused LUNGS: clear to auscultation, excellent air exchange, negative for stridor or stertor, easy respirations without grunting/flaring/retracting. ABDOMEN : Abdomen is soft, nontender, without organomegaly or masses. No guarding or rebound. Bowelsounds are intact in all 4 quadrants. EXTREMITIES: No clubbing, cyanosis, or edema. NEUROLOGICAL : Muscle tone normal and Normal age appropriate gait SKIN : normal color, no jaundice or rash and Normal skin turgor Impression: (J02.9) Exudative pharyngitis (primary encounter diagnosis) Plan: Office Visit on 03/11/22 prednisoLONE sodium phosphate (ORAPRED) 15 mg/5 mL (3 mg/mL) oral liquid Liver profile and Monospot test were ordered at the [facility] secondary to insurancereasons ( father works there ) Education given. Course of illness/condition and rationale for treatment and further investigation discussed. I spent a total of 25 minutes on the date of the service which included preparing to see the patient, [id number] patient care, completing clinical documentation, obtaining and/or reviewing separately obtained history, performing a medically appropriate examination, counseling and educating the pat ient/family/caregiver and ordering medications, tests, or procedures. Follow-up pending labs Roxanne Kellogg MD [facility] Department of Pediatrics, [facility] documented in this encounterKnox Community HospitalEvaluation note* Diagnosis Exudative pharyngitis- Primary Acute pharyngitis documented in this encounter [facility]* Diagnosis Onset Date Resolution Status Acute pharyngitis [facility] [facility] Work Phone: Evaluation note* Diagnosis Acute bacterial conjunctivitis of both eyes- Primary Acute non-recurrent maxillary sinusitis Bilateral impacted cerumen Impacted cerumen [facility] Acute suppurative otitis media of left ear without spontaneous rupture of tympanic membrane, recurrence not specified- Primary [facility] Diagnosis Upper respiratory tract infection, unspecified type- Primary Acute pharyngitis, unspecified etiology Allergy to peanuts [facility] Diagnosis Onset Date Resolution Status Admit Date Encounter for wellness examination in adult acute May 9:24am Impacted cerumen, right ear acute June 19, 2025 9:24am Sinus infection acute June 192024 9:24am Elevated blood pressure reading inactive June 19 9:24am [facility] Work Phone: Reason for referral (narrative)No reason for referral information [facility]Co[facility] Work Phone: Chief Complaint and Reason for Visit Chief Complaint SORE THROAT Reason for Visit Acute pharyngitis Chief Complaint Admit Date Congestion, Cough June 19, 2025 9: 24am Reason for Visit Admit Date Encounter for wellness examination in ad ult June 19, 2025 9:24am Impacted cerumen, right ear June 19, 2025 9:24am Sinus infection June 19, 2025 9: 24am Elevated blood pressure reading June 012024 9:24am Summary Purpose Family History No Family History Records Found Relationship Condition Age at Onset Recorded Date/T eun grandmother Arthritis Unknown Hypertension Unknown Pulmonary embolism Unknown grandfather Malignant neoplasm Unknown mother Disorder of thyroid Unknown Advance Directives No Advanced Directives Records FoundNo Advanced Directives Records Found Additional Source Comments Source Comments (unrecognize d section and content) In the event this informatio n is protected by the Federal Confidentiality of Alcohol and Drug Abuse Patient Records regulations: The Federal rules restrict any use of the information to criminally investigate or prosecute any alcohol or drug abuse patient.[facility] the event this information is protected by the Federal Confidentiality of Alcohol and Drug Abuse Patient Records regulations: The Federal rules restrict any use of the information to criminally investigate or prosecute any alcohol or drug abuse patient.[facility] the event this information is protected by the Federal Confidentiality of Alcohol and Drug Abuse Patient Records regulations: The Federal rules restrict any use of the information to criminally investigate or prosecute any alcohol or drug abuse patient.[facility] the event this information is protected by the Federal Confidentiality of Alcohol and Drug Abuse Patient Records regulations: The Federal rules restrict any use of the information to criminally investigate or prosecute any alcohol or drug abuse patient.[facility] the event this information is protected by the Federal Confidentiality of Alcohol and Drug Abuse Patient Records regulations: The Federal rules restrict any use of the information to criminally investigate or prosecute any alcohol or drug abuse patient.[facility] the event this information is protected by the Federal Confidentiality of Alcohol and Drug Abuse Patient Records regulations: The Federal rules restrict any use of the information to criminally investigate or prosecute any alcohol or drug abuse patient.[facility] Reason for Visit (unrecogniz ed section and content) Reason Comments Follow Up ST - pain has not im proved - was not swabbed for strep Specialty Diagnoses / Procedures Referred By Vianney ballesteros Referred To Contact Pediatrics / PEDIATRICS Diagnoses Sore throat severe sore throat, currently on augmentin- coming at 1115am Procedures OFFICE/OUTPATIENT ESTABLISHED MOD MDM 30-39 MIN 4C [place] [address] [place], [place] [id number] Referral ID Status Reason Start Date Expiration Date V isits Requested Visits Authorized [id number] Authorized 03/11/2022 10/30/2022 10 10 Reason Comments Results, Lab Reason Comments Cold Symptoms Red eyes/discharge x 2 days, cough, runny nose, ST x1 week, ear pain started today. No known fevers. Has taken 2 at home covid test and both neg Specialty Diagnoses / Procedures Referred By Vianney ballesteros Referred To Contact Pediatrics / PEDIATRICS Diagnoses Sore throat severe sore throat, currently on augmentin- coming at 1115am Procedures OFFICE/OUTPATIENT ESTABLISHED MOD [facility] 30-39 MIN 4C MD Bess See John H, MD [address] [place] [address] Reason Comments Left ear pain reporting pain for a couple of days, completed amoxicillin yesterday for sinusitis. Specialty Diagnoses / Procedures Referred By Vianney ballesteros Referred To Contact Pediatrics / PRIMARY CARE PEDIATRICS Diagnoses Sore throat severe sore throat, currently on augmentin- coming at 1115am Procedures OFFICE/OUTPATIENT ESTABLISHED MOD MDM 30-39 MIN 4C MD Bess See John H, MD [address] [place] [address] Reason Comments Sore Throat Onset on 10/03, no kn own fever. Cough Onset on 10/04, non p roductive Rhinitis Onset on 10/04 Nasal Congestion Onset on 10/04 Rx Refills Needs refill of EPI PENS Specialty Diagnoses / Procedures Referred By Vianney t Referred To Contact Pediatrics / PRIMARY CARE PEDIATRICS Diagnoses Sore throat severe sore throat, currently on augmentin- coming at 1115am Procedures OFFICE/OUTPATIENT ESTABLISHED MOD MDM 30-39 MIN 4C [place] [address] [place] [id number] Care Teams (unrecognized sec tion and content) Election Watcher Relationship Specialty Start Date End Date Roxanne Kellogg MD [address] [place] [id number] PCP - General Pediatrics 12/29/11 Election Watcher Relationship Specialty Start [place] [address] [place] [id number] PCP - General Pediatrics 12/29/11 Election Watcher Relationship Specialty Start Date End Date Roxanne Kellogg MD [address] [place] [id number] PCP - General Pediatrics 12/29/11 Election Watcher Relationship Specialty Start Date End Date Roxanne Kellogg MD [address] [place] [id number] PCP - General Pediatrics 12/29/11 Election Watcher Relationship Specialty Start Date End Date Roxanne Kellogg MD [address] [place] [address] [phone] PCP - General Pediatrics 12/29/11 Team Status: Active Member Role/Relationship Status Dates Dr. Roxanne Kellogg MD Family Provider Active Dr. Soledad Foote MD Primary Care Provider Active Team Status: Inactive Member Role/Relationship Status Dates Dr. Soledad Foote MD Primary Care Provider Active Start: June 19, 2025 End: June 19, 2025 Dr. Soledad Foote MD Attending Provider Active Start: June 19, 2025 End: June 19, 2025 Goals (unrecognized section and content) Goals may be documented in a n alternate sectionGoals may be documented in an alternate sectionGoals may be documented in an alternate section (unrecognized sect ion and content) No Status Records FoundNo Status Records Found INFORMATION SOURCE (unrecogn ized section and content) DATE CREATED AUTHOR 10/08/2022 [facility] DATE CREATED AUTHOR AUTHOR'S ORGANIZ ATION 06/20/2025 [facility] FOR RECORDS PERTAINING TO PATIENTS WHO ARE OR HAVE BEEN ENROLLED IN A CHEMICAL DEPENDENCY/SUBSTANCEABUSE PROGRAM, SOME INFORMATION MAY BE OMITTED. This clinical summary was aggregated from multiple sources. Caution should be exercised in using it in the provision of clinical care. This summary normalizes information from multiple sources, and as a consequence, information in this document may materially change the coding, format and clinical context of patient data. In addition, data may be omitted in some cases. CLINICAL DECISIONS SHOULD BE BASED ON THE PRIMARY CLINICAL RECORDS. [employer] provides no warranty or guarantee of the accuracy or completeness of information in this document.
[2025-08-21 10:29] LABS: Hematocrit 46.6 % (40-54); Hemoglobin 16.2 g/dL (13.0-16.5); Immature Granulocytes Count 0.010 X10^3/uL (0.0-0.0); Mean Corp Hgb Conc 34.8 g/dL (32-36); Mean Corpuscular Volume 89.4 fL (80-94); Mean Platelet Vol. 9.5 fl (6.2-12.0); NRBC Flagged by Analyzer 0 % (0-5); Platelet Count 233 K/mm3 (150-450); RBC Distribution Width CV 12.0 % (11.6-14.6); RBC Distribution Width SD 39.3 fl (35.1-43.9); Red Blood Count 5.21 M/mm3 (4.6-6.2); White Blood Count 5.4 K/mm3 (4.4-11.0)
[2025-08-21 11:07] LABS: AST(SGOT) 30 U/L (<=37); Alanine Aminotransfer ALT/SGPT 23 U/L (<=46); Albumin, Serum 4.6 g/dL (3.5-5.0); Alkaline Phosphatase 85 U/L (40-129); Anion Gap 9 (5-15); BUN 21 mg/dL (4-19); BUN/Creat Ratio 14.9 RATIO (10-20); Calcium,Total 9.5 mg/dL (7.6-11.0); Carbon Dioxide 28.1 mmol/L (21.0-32.0); Chloride 103 mmol/L (98-108); Cholesterol 177 mg/dL (<=190); Globulin 2.1 g/dL (2.2-4.2); Glucose 86 mg/dL (70-99); Low Density Lipoprotein Calc. 101 mg/dL; Magnesium 2.4 mg/dL (1.5-2.2); Potassium 4.0 mmol/L (3.3-5.1); Triglycerides 57 mg/dL; Very Low Density Lipoprotein 11 mg/dL (5-40); Vitamin D,25 Hydroxy 45.9 ng/mL (30-100); cholesterol:hdl ratio screen 2.71
== END | disposition home or self-care (01) ==
PROVIDERS: PCP Internal Medicine; Referring Provider Internal Medicine; Visit Provider Internal Medicine
DX: Z00.00 Encounter for general adult medical examination without abnormal findings (principal); R03.0 Elevated blood-pressure reading, without diagnosis of hypertension; Z13.220 Encounter for screening for lipoid disorders; E55.9 Vitamin D deficiency, unspecified; R79.89 Other specified abnormal findings of blood chemistry
CPT/HCPCS: 36415; 80053; 80061; 82306; 83036; 83735; 84443; 85025